=== PATIENT | female | born 1950 | race Asian ===

== ENCOUNTER → 2016-08-03 | Outpatient (CLI) | payer MEDICARE, OTHER | LOC: RAD 18:24 | PROVIDERS: ATTEND Internal Medicine | DX: C50.211 Malignant neoplasm of upper-inner quadrant of right female breast (principal) | CPT/HCPCS: 78815; A9552 ==

== ENCOUNTER → 2016-11-09 | Outpatient (CLI) | payer MEDICARE, OTHER | LOC: RAD 16:17 | PROVIDERS: ATTEND Internal Medicine | DX: C50.211 Malignant neoplasm of upper-inner quadrant of right female breast (principal) | CPT/HCPCS: 78815; A9552 ==

== ENCOUNTER 2017-01-29 07:19 | Inpatient (IN) | payer MEDICARE, OTHER ==
[2017-01-29] MEDS ORDERED: IPRATROPIUM/ALBUTEROL 0.5-2.5 MG/3 ML AMPUL NEB ONE ×2 (07:52→16:23)
--- NOTE | 2017-01-29 08:47 | RADIOLOGY REPORT (SQ) ---
EXAM DESCRIPTION: CHEST SINGLE VIEW COMPLETED DATE/TIME: 01/29/2017 8:16 am REASON FOR STUDY: sob COMPARISON: 03/23/2015. Correlation chest CT 11/26/2015. EXAM PARAMETERS: NUMBER OF VIEWS: One view. TECHNIQUE: Single frontal radiographic view of the chest acquired. RADIATION DOSE: NA LIMITATIONS: None. FINDINGS: LUNGS AND PLEURA: Increasing airspace disease in the lingula, left lower lobe and right maritza ng adjacent to the major fissure. MEDIASTINUM AND HILAR STRUCTURES: Stable. HEART AND VASCULAR STRUCTURES: Heart normal in size. Normal vasculature. BONES: No acute findings. HARDWARE: Left-sided port with tip overlying SVC. OTHER: No other significant finding. IMPRESSION: Bilateral pneumonia. There is a background of chronic changes. TECHNICAL DOCUMENTATION: JOB ID: [id number]
[2017-01-29] MEDS ORDERED: AZITHROMYCIN INJ 500 MG VIAL IV ONE (08:53)
--- NOTE | 2017-01-29 08:53 | ER Document Report ---
ED Respiratory Problem - General Chief Complaint: Breathing Difficulty Stated Complaint: DIFFICULTY BREATHING Time Seen by Provider: 01/29/17 07:39 Mode of Arrival: Ambulatory Information source: Patient Notes: Patient is a 66-year-old female with a history of breast cancer and lung cancer currently on chemotherapy who presents to the ER today for shortness of breath 3 days. Patient states that worsened today. She is usually on 2 L of oxygen at home and is on that now doing quite well. She denies any fevers or chills that she knows of but does admit to a slightly productive cough. She denies other symptoms. TRAVEL OUTSIDE OF THE [place] IN LAST 30 DAYS: No - Related Data Allergies/Adverse Reactions: aspirin [Aspirin] Allergy (Mild, Verified 01/29/17 07:21) diazepam [From Valium] Allergy (Verified 01/29/17 08:12) levofloxacin [From Levaquin] Allergy (Verified 01/29/17 08:12) morphine [Morphine] Allergy (Verified 01/29/17 07:21) Home Medications: Current Home Medications Albuterol Sulfate [Proair HFA] 2 puff IH Q4HP PRN 01/29/17 [History] Aspirin [Ecotrin 81 mg EC Tablet] 81 mg PO DAILY 01/29/17 [History] Atorvastatin Calcium [Lipitor 40 mg Tablet] 40 mg PO QHS 01/29/17 [History] Capecitabine 150 mg PO Q12 01/29/17 [History] Capecitabine [Xeloda] 1,500 mg PO Q12 01/29/17 [History] Duloxetine HCl [Cymbalta] 60 mg PO DAILY 01/29/17 [History] Fluticasone Propionate [Flonase Nasal [place] 50 Mcg/[place] 16 gm] 1 spray NASL Q12 01/29/17 [History] Gabapentin [Neurontin 300 mg Capsule] 300 mg PO Q8 01/29/17 [History] Guaifenesin/Codeine Phosphate [Guaifenesin-Codeine Liquid] 10 ml PO Q8HP PRN [History] Multivits-Min/Iron/FA/Lutein [Centrum Silver Women Tablet] 1 each PO DAILY 01/29 [History] Ondansetron [Zofran Odt 4 mg Tablet] 8 mg PO Q6HP PRN 01/29/17 [History] Pregabalin [Lyrica 50 Mg Capsule] 50 mg PO Q8 01/29/17 [History] Tiotropium Lulu [Spiriva Handihaler 5 Cap/Kit (18 Mcg/Cap)] 1 cap IH DAILY [History] Past Medical History - General Information source: Patient - Social History Smoking Status: Never Smoker Family History: Reviewed & Not Pertinent Patient has suicidal ideation: No Patient has homicidal ideation: No - Past Medical History Cardiac Medical History: Reports: Hx Hypercholesterolemia Denies: Hx Coronary Artery Disease, Hx Heart Attack, Hx Hypertension Pulmonary Medical History: Denies: Hx Asthma, Hx Bronchitis, Hx COPD, Hx Pneumonia Neurological Medical History: Denies: Hx Cerebrovascular Accident, Hx Seizures Renal/ Medical History: Denies: Hx Peritoneal Dialysis Musculoskeltal Medical History: Reports Hx Arthritis Past Surgical History: Reports: Hx Appendectomy, Hx Breast Surgery - R lumpectomy, Hx Hysterectomy, Hx Nose Surgery - Immunizations Hx Diphtheria, Pertussis, Tetanus Vaccination: Yes Hx Pneumococcal Vaccination: 09/03/13 Review of Systems - Review of Systems Constitutional: No symptoms reported EENT: No symptoms reported Cardiovascular: No symptoms reported Respiratory: See HPI Gastrointestinal: No symptoms reported Genitourinary: No symptoms reported Female Genitourinary: No symptoms reported Musculoskeletal: No symptoms reported Skin: No symptoms reported Hematologic/Lymphatic: No symptoms reported Neurological/Psychological: No symptoms reported Physical Exam - Vital signs Vitals: Temp Pulse Resp BP Pulse Ox 97.5 F 76 22 H 117/80 98 01/29/17 07:27 01/29/17 07:27 01/29/17 07:27 01/29/17 07:27 01/29/17 07:27 - Notes Notes: PHYSICAL EXAMINATION: GENERAL: Chronically ill-appearing, but in no acute distress. HEAD: Atraumatic, normocephalic. EYES: Pupils equal round and reactive to light, extraocular movements intact, sclera anicteric, conjunctiva are normal. ENT: ear canals without erythema or foreign body, TMs pearly o[place] with good bony landmarks, nares patent, oropharynx clear without exudates. Moist mucous membranes. Airway patent NECK: Normal range of motion, supple without lymphadenopathy LUNGS: rhonchi heard in right lower lung field, No wheezes, rales HEART: Regular rate and rhythm without murmurs ABDOMEN: Soft, no tenderness. No guarding, no rebound BACK: no vertebral tenderness, normal ROM GI/: no CVA tenderness EXTREMITIES: Normal range of motion, no pitting edema. No cyanosis. NEUROLOGICAL: Cranial nerves grossly intact. Normal sensory/motor exams. PSYCH: Normal mood, normal affect. SKIN: Warm, Dry, normal turgor, no rashes or lesions noted Course - Re-evaluation Re-evalutation: 01/29/17 11:36 , Chest x-ray revealed bilateral pneumonia. Patient's vital signs are also unremarkable as she is not tachypneic and 98% on her regular 2 L that she wears at home. Acutely she actually looks well, however with her clinical history of current lung cancer on chemotherapy with now a bilateral pneumonia on chest x- ray, I did discuss with her oncologist as well as her primary care provider, Dr. Fermin and Dr. Pittman, who agree that she needs admission for IV antibiotics 01/29/17 11:37 - Vital Signs Vital signs: Temp Pulse Resp BP Pulse Ox 98.1 F 82 24 H 119/61 97 01/29/17 15:29 01/29/17 16:20 01/29/17 16:20 01/29/17 15:29 01/29/17 16:20 - Laboratory Result Diagrams: 01/29/17 08:47 01/29/17 08:47 Laboratory results interpreted by me: 01/29/17 01/29/17 08:47 08:47 MCV 104 H MCH 34.9 H RDW 17.7 H Chloride 112 H Carbon Dioxide 21 L Glucose 112 H Discharge - Discharge Clinical Impression: Lung cancer Qualifiers: Laterality: unspecified laterality Lung location: unspecified part of lung Qualified Code(s): C34.90 - Malignant neoplasm of unspecified part of unspecified bronchus or lung Bilateral pneumonia Qualifiers: Pneumonia type: due to unspecified organism Lung location: unspecified part of lung Qualified Code(s): J18.9 - Pneumonia, unspecified organism Condition: Stable Disposition: ADMITTED INPATIENT Admitting Provider: Toya Unit Admitted: [facility]
[2017-01-29 08:59] LABS: ABSOLUTE EOSINOPHILS # (AUTO) 0.3 10^3/uL (0.0-0.6); ABSOLUTE LYMPHOCYTES (AUTO) 1.3 10^3/uL (0.5-4.7); ABSOLUTE MONOCYTES (AUTO) 0.4 10^3/uL (0.1-1.4); ABSOLUTE NEUT (AUTO) 7.1 10^3/uL (1.7-8.2); BASOPHILS % (AUTO) 0.4 % (0-2); EOSINOPHILS % (AUTO) 2.8 % (0-6); HEMATOCRIT 40.9 % (36.0-47.0); HEMOGLOBIN 13.7 g/dL (12.0-15.5); HGB HCT DIFFERENCE 0.2; LYMPHOCYTES % (AUTO) 14.8 % (13-45); MEAN CORPUSCULAR HEMOGLOBIN 34.9 pg (27.0-33.4); MEAN CORPUSCULAR HGB CONC 33.5 g/dL (32.0-36.0); MEAN CORPUSCULAR VOLUME 104 fl (80-97); MONOCYTES % (AUTO) 4.6 % (3-13); RED BLOOD COUNT 3.92 10^6/uL (3.72-5.28); RED CELL DISTRIBUTION WIDTH 17.7 % (11.5-14.0); SEGMENTED NEUTROPHILS % (AUTO) 77.4 % (42-78); WHITE BLOOD COUNT 9.1 10^3/uL (4.0-10.5)
[2017-01-29 09:14] LABS: ALANINE AMINOTRANSFERASE 27 U/L (9-52); ALBUMIN 4.1 g/dL (3.5-5.0); ALKALINE PHOSPHATASE 84 U/L (38-126); ANION GAP 11 (5-19); ASPARTATE AMINO TRANSFERASE 19 U/L (14-36); BILIRUBIN,DIRECT 0.3 mg/dL (0.0-0.4); BILIRUBIN,TOTAL 0.9 mg/dL (0.2-1.3); BLOOD UREA NITROGEN 11 mg/dL (7-20); CALCIUM 9.2 mg/dL (8.4-10.2); CARBON DIOXIDE 21 mmol/L (22-30); CHLORIDE 112 mmol/L (98-107); CREATINE KINASE 35 U/L (30-135); CREATININE RESULT 0.52 mg/dL (0.52-1.25); GLUCOSE 112 mg/dL (75-110); POTASSIUM 4.5 mmol/L (3.6-5.0); SODIUM 143.7 mmol/L (137-145); TOTAL PROTEIN 7.2 g/dL (6.3-8.2)
[2017-01-29 09:23] LABS: CREATINE KINASE MB 0.27 ng/mL (<4.55)
[2017-01-29 09:27] LABS: TROPONIN I < 0.012 ng/mL
[2017-01-29 09:30] LABS: APPEARANCE,URINE CLEAR; BILIRUBIN,URINE NEGATIVE (NEGATIVE); GLUCOSE, URINE NEGATIVE (NEGATIVE); KETONES,URINE NEGATIVE (NEGATIVE); LEUKOCYTE ESTERASE,URINE NEGATIVE (NEGATIVE); NITRITE,URINE NEGATIVE (NEGATIVE); PROTEIN,URINE NEGATIVE (NEGATIVE); URINE SPECIFIC GRAVITY 1.009; UROBILINOGEN,URINE NEGATIVE mg/dL (<2.0)
[2017-01-29] MEDS ORDERED: [UNRECOGNIZED DRUG - OTHER] PO PRN (15:51)
[2017-01-29] MEDS ORDERED: CODEINE PHOSPHATE PO PRN (15:51)
[2017-01-29] MEDS ORDERED: ALBUTEROL SULFATE HFA (90 MCG/PUFF) 8 GM MDI (1 MDI/ER DISP) IH PRN (15:51)
[2017-01-29] MEDS ORDERED: GUAIFENESIN PO PRN (15:51)
[2017-01-29] MEDS ORDERED: IPRATROPIUM/ALBUTEROL 0.5-2.5 MG/3 ML AMPUL NEB PRN (16:37)
[2017-01-29] MEDS ORDERED: GUAIFENESIN/CODEINE PHOS 100-10 MG/ 5 ML UDC PO PRN (17:08)
[2017-01-29 17:14] LABS: PARTIAL THROMBOPLASTIN TIME 36.6 SEC (23.5-35.8)
[2017-01-29 17:16] LABS: D-DIMER 0.67 ug/mL (0.00-0.50)
--- NOTE | 2017-01-29 17:19 | EKG REPORT ---
SEVERITY:- NORMAL ECG - SINUS RHYTHM : Confirmed by: Angela Sinclair MD 29-Jan-2017 17:17:47
--- NOTE | 2017-01-29 17:33 | RADIOLOGY REPORT (SQ) ---
EXAM DESCRIPTION: CT CHEST WITH COMPLETED DATE/TIME: 01/29/2017 5:09 pm REASON FOR STUDY: SOB PNA COMPARISON: Chest x-ray dated 01/29/2017 and PET scan dated November [address] scan dated November 2015 TECHNIQUE: CT scan of the chest performed using helical scanning technique with dynamic intravenous contrast injection. Images reviewed with lung, soft tissue and bone windows. Reconstructed coronal and sagittal MPR images reviewed. All images stored on PACS. All CT scanners at this facility use dose modulation, iterative reconstruction, and/or weight based d osing when appropriate to reduce radiation dose to as low as reasonably achievable (ALARA). [facility]: Dose Right [facility]: CareDose [facility]: Dose Right [facility]: Teradose 4D [facility]: [place] CONTRAST TYPE AND DOSE: contrast/concentration: Isovue 370.00 mg/ml; Total Contrast Delivered: 100.0 ml; Total Saline Delivered: 110.0 ml RENAL FUNCTION: GFR > 60. RADIATION DOSE: Up-to-date CT equipment and radiation dose reduction techniques were employed. CTDIv ol: 5.2 mGy. DLP: 194 mGy-cm. . LIMITATIONS: None. FINDINGS: LUNGS AND PLEURA: Extensive chronic appearing changes are again identified. A moderate si ze left pleural effusion is identified which was not present on the previous study. The previously d escribed multiple areas of dense lung parenchymal consolidation bilaterally are again identified and are similar in appearance to the previous PET-CT scan. These changes are superimposed on the extensi ve underlying chronic changes. HILAR AND MEDIASTINAL STRUCTURES: Prominent mediastinal lymph nodes are stable. HEART AND VASCULAR STRUCTURES: The previously described 4.2 cm in diameter aneurysm of the ascending aorta appears stabl. No central pulmonary emboli. No pericardial effusion. HARDWARE: Port-A-Cath is unchanged in position. UPPER ABDOMEN: No significant findings. Limited exam. THYROID AND OTHER SOFT TISSUES: No masses. No adenopathy. BONES: No significant finding. OTHER: No other significant finding. IMPRESSION: Extensive chronic appearing changes are again identified. The previously described mult iple areas of dense lung parenchymal consolidation bilaterally are again identified and are similar i n appearance to the previous PET-CT scan. These changes are superimposed on extensive underlying chr onic changes. Interval development of a moderate size left pleural effusion. Other findings as note d above TECHNICAL DOCUMENTATION: JOB ID: [id number] Quality ID # [id number]: Final reports with documentation of one or more dose reduction techniques (e.g., Au tomated exposure control, adjustment of the mA and/or kV according to patient size, use of iterative reconstruction technique) 2010 [employer]- All Rights Reserved
[2017-01-29] MEDS ORDERED: DULOXETINE HCL 30 MG CAPSULE.DR PO ONE (18:00)
[2017-01-29] MEDS ORDERED: CEFTRIAXONE SODIUM 1,000 MG in DEXTROSE 5%-WATER 50 ML IV SCH (18:00)
[2017-01-29] MEDS: CEFTRIAXONE 1 GM/D5W RTU 1 GM/50 ML RTUPB IV SCH (18:37)
[2017-01-29 18:50] LABS: PROTHROMBIN TIME 12.7 SEC (11.4-15.4)
[2017-01-29 18:51] LABS: PARTIAL THROMBOPLASTIN TIME 27.3 SEC (23.5-35.8)
--- NOTE | 2017-01-29 19:59 | PDOC H&P ---
History of Present Illness Admission Date/PCP: 01/29/17 10:51 FARIDEH SCOTT MD History of Present Illness: GIANFRANCO LAWRENCE is a 66 year old female, She has a history of malignant neoplasm of the lung, on chemotherapy, she came to the emergency room for the evaluation of progressive shortness of breath for the last seven days, she said the symptoms increased last night and she was unable to sleep.She was evaluated in the emergency room, and hospital admission was advised. I saw patient on the floor, she is well known to me, she continues to smoke cigarettes despite very severe COPD, malignant neoplasm of the lung on active chemotherapy I requested for CT chest with contrast, it showed extensive chronic appearing changes there was a moderate sized left pleural effusion which was not present on the previous study. The previously described multiple areas of dense lung parenchyma consolidation bilaterally are again identified and similar in appearance to the previous PET CT scan the changes are superimposed on the extensive underlining chronic changes. Also found was a 4.2 cm aneurysm of the ascending aorta stable Past Medical History Cardiac Medical History: Reports: Hyperlipidema Pulmonary Medical History: Reports: Chronic Obstructive Pulmonary Disease (COPD) Malignancy Medical History: Reports: Breast Cancer, Lung Cancer Musculoskeltal Medical History: Reports: Arthritis Psychiatric Medical History: Reports: Depression Past Surgical History Past Surgical History: Reports: Appendectomy, Hysterectomy Social History Smoking Status: Current Every Day Smoker Number of Years Smokin Last Time Smoked: last week Frequency of Alcohol Use: None Hx Recreational Drug Use: No Drugs: None Hx Prescription Drug Abuse: No Family History Family History: Reviewed & Not Pertinent Parental Family History Reviewed: Yes Children Family History Reviewed: Yes Sibling(s) Family History Reviewed.: Yes Medication/Allergy Home Medications: Albuterol Sulfate [Proair HFA] 2 puff IH Q4HP PRN 01/29/17 Aspirin [Ecotrin 81 mg EC Tablet] 81 mg PO DAILY 01/29/17 Atorvastatin Calcium [Lipitor 40 mg Tablet] 40 mg PO QHS 01/29/17 Capecitabine 150 mg PO Q12 01/29/17 Capecitabine [Xeloda] 1,500 mg PO Q12 01/29/17 Duloxetine HCl [Cymbalta] 60 mg PO DAILY 01/29/17 Fluticasone Propionate [Flonase Nasal [place] 50 Mcg/[place] 16 gm] 1 spray NASL Q12 01/29/17 Gabapentin [Neurontin 300 mg Capsule] 300 mg PO Q8 01/29/17 Guaifenesin/Codeine Phosphate [Guaifenesin-Codeine Liquid] 10 ml PO Q8HP PRN Multivits-Min/Iron/FA/Lutein [Centrum Silver Women Tablet] 1 each PO DAILY 01/29 Ondansetron [Zofran Odt 4 mg Tablet] 8 mg PO Q6HP PRN 01/29/17 Pregabalin [Lyrica 50 Mg Capsule] 50 mg PO Q8 01/29/17 Tiotropium [place] [Spiriva [place] 5 Cap/Kit (18 Mcg/Cap)] 1 cap IH DAILY Allergies/Adverse Reactions: aspirin [Aspirin] Allergy (Mild, Verified 01/29/17 07:21) diazepam [From Valium] Allergy (Verified 01/29/17 08:12) levofloxacin [From Levaquin] Allergy (Verified 01/29/17 08:12) morphine [Morphine] Allergy (Verified 01/29/17 07:21) Review of Systems Constitutional: PRESENT: fever(s), weight loss Eyes: ABSENT: visual disturbances Ears: ABSENT: hearing changes Cardiovascular: PRESENT: dyspnea on exertion Respiratory: PRESENT: cough, dyspnea Gastrointestinal: ABSENT: abdominal pain, constipation, diarrhea, hematemesis, hematochezia, nausea, vomiting Genitourinary: ABSENT: dysuria, hematuria Musculoskeletal: ABSENT: joint swelling Integumentary: ABSENT: rash, wounds Neurological: ABSENT: abnormal gait, abnormal speech, confusion, dizziness, focal weakness, syncope Psychiatric: ABSENT: anxiety, depression, homidical ideation, suicidal ideation Endocrine: ABSENT: cold intolerance, heat intolerance, menstrual abnormalities, polydipsia, polyuria Hematologic/Lymphatic: ABSENT: easy bleeding, easy bruising, lymphadenopathy Physical Exam Vital Signs: Temp Pulse Resp BP Pulse Ox 98.1 F 87 24 H 119/61 100 01/29/17 15:29 01/29/17 18:49 01/29/17 16:20 01/29/17 15:29 01/29/17 18:49 Intake & Output 01/28/17 01/29/17 01/30/17 06:59 06:59 06:59 Intake Total 590 Balance 590 Weight 61 kg General appearance: PRESENT: mild distress Head exam: PRESENT: atraumatic, normocephalic Eye exam: PRESENT: conjunctiva pink, EOMI, PERRLA Mouth exam: PRESENT: moist, tongue midline Neck exam: PRESENT: full ROM Respiratory exam: PRESENT: rales Cardiovascular exam: PRESENT: RRR, +S1, +S2 Vascular exam: PRESENT: normal capillary refill GI/Abdominal exam: PRESENT: normal bowel sounds, soft Rectal exam: PRESENT: deferred Neurological exam: PRESENT: alert, awake, oriented to person, oriented to place , oriented to time, oriented to situation, CN II-XII grossly intact Psychiatric exam: PRESENT: appropriate affect, normal mood Skin exam: PRESENT: dry, intact, warm Results Impressions: Chest CT 01/29/17 00:00 IMPRESSION: Extensive chronic appearing changes are again identified. The previously described multiple areas of dense lung parenchymal consolidation bilaterally are again identified and are similar in appearance to the previous PET-CT scan. These changes are superimposed on extensive underlying chronic changes. Interval development of a moderate size left pleural effusion. Other findings as noted above Chest X-Ray 01/29/17 07:40 IMPRESSION: Bilateral pneumonia. There is a background of chronic changes. Assessment & Plan - Diagnosis (1) Pleural effusion on left Is this a current diagnosis for this admission?: YesPlan: The differential diagnoses include malignant pleural effusion, parapneumonic effusion, she will empirically be treated with IV antibiotic, ceftriaxone and Zithromax. Thoracentesis will be obtained for diagnostic and therapeutic purposes. Overall prognosis is poor. Patient is a DNR status this will be stated and continue on record (2) Malignant neoplasm of lung Qualifiers: Laterality: unspecified laterality Lung location: unspecified part of lung Qualified Code(s): C34.90 - Malignant neoplasm of unspecified part of unspecified bronchus or lung Is this a current diagnosis for this admission?: Yes
[2017-01-29] MEDS: IPRATROPIUM/ALBUTEROL 0.5-2.5 MG/3 ML AMPUL NEB PRN (20:11)
[2017-01-29] MEDS: ATORVASTATIN CALCIUM 40 MG TABLET PO SCH (21:49)
[2017-01-29] MEDS: GABAPENTIN 300 MG CAPSULE PO SCH (21:50)
[2017-01-29] MEDS: PREGABALIN 50 MG CAPSULE PO SCH (21:50)
[2017-01-29] MEDS ORDERED: CAPECITABINE 1500 MG PO SCH (22:00)
[2017-01-29] MEDS: FLUTICASONE NASAL SPRAY 50 MCG/SPRY 120 SPRAY/16 GM NASL SCH (22:00)
[2017-01-29] MEDS ORDERED: CAPECITABINE 150 MG PO SCH (22:00)
[2017-01-30 00:12] LABS: ARTERIAL BLOOD BASE EXCESS -0.2 mmol/L; ARTERIAL BLOOD O2 SATURATION 97.2 % (94-98)
[2017-01-30] MEDS: PREGABALIN 50 MG CAPSULE PO SCH ×3 (06:41→22:05)
[2017-01-30] MEDS: GABAPENTIN 300 MG CAPSULE PO SCH ×3 (06:42→22:04)
[2017-01-30] MEDS ORDERED: (PENDING PHARMACY ID) (Multivits-Min/Iron/Fa/Lutein [Centrum Silver Women Tablet] 1 EACH) PO SCH (10:00)
[2017-01-30] MEDS: IPRATROPIUM/ALBUTEROL 0.5-2.5 MG/3 ML AMPUL NEB PRN (10:13)
[2017-01-30] MEDS: AZITHROMYCIN 500 MG in DEXTROSE 5%-WATER 250 ML IV SCH (10:20)
[2017-01-30] MEDS: DULOXETINE HCL 30 MG CAPSULE.DR PO SCH (10:21)
[2017-01-30] MEDS: MULTIVITAMIN TABLET PO SCH (10:21)
[2017-01-30] MEDS: XELODA 500 MG PO SCH ×2 (10:22→22:05)
[2017-01-30] MEDS: TIOTROPIUM BROMIDE DPI 5 CAP/KIT (18 MCG/CAP) IH SCH (10:23)
[2017-01-30] MEDS: CAPECITABINE PO SCH ×2 (10:23→22:04)
[2017-01-30] MEDS: FLUTICASONE NASAL SPRAY 50 MCG/SPRY 120 SPRAY/16 GM NASL SCH ×2 (10:24→22:04)
[2017-01-30] MEDS: ASPIRIN 81 MG TABLET, ENT COATED PO SCH (10:25)
--- NOTE | 2017-01-30 12:12 | RADIOLOGY REPORT (SQ) ---
EXAM DESCRIPTION: CHEST SINGLE VIEW COMPLETED DATE/TIME: 01/30/2017 12:05 pm REASON FOR STUDY: S/P LEFT THORACENTESIS COMPARISON: 01/29/2017. EXAM PARAMETERS: NUMBER OF VIEWS: One view. TECHNIQUE: Single frontal radiographic view of the chest acquired. RADIATION DOSE: NA LIMITATIONS: None. FINDINGS: LUNGS AND PLEURA: Bilateral parenchymal infiltrates. Slight decrease in the left pleural effusion. No pneumothorax. MEDIASTINUM AND HILAR STRUCTURES: No masses. Contour normal. HEART AND VASCULAR STRUCTURES: Heart normal in size. Normal vasculature. BONES: No acute findings. HARDWARE: Vascular access port. Surgical clips. OTHER: No other significant finding. IMPRESSION: NO PNEUMOTHORAX FOLLOWING LEFT THORACENTESIS. BILATERAL INFILTRATES UNCHANGED. TECHNICAL DOCUMENTATION: JOB ID: [id number]
--- NOTE | 2017-01-30 12:13 | RADIOLOGY REPORT (SQ) ---
EXAM DESCRIPTION: U/S THORACENTESIS WITH IMAGING COMPLETED DATE/TIME: 01/30/2017 11:41 am REASON FOR STUDY: moderate pleural effusion COMPARISON: None. LIMITATIONS: None. PROCEDURE: Procedure, risks, benefit, and alternative explained to patient who then gave written con sent. The posterior left chest wall was marked using ultrasound guidance. A time-out was called for correct marking verification. Chest prepped and draped using sterile technique. Local anesthesia ac hieved using 5 ml of 1% lidocaine injection. A 6fr Safe-T- Centesis set was introduced into the left pleural space. Fluid was aspirated. The catheter was removed and the entry site was covered with s terile bandage. No immediate complications noted. Images acquired during the procedure were stored on PACS. FINDINGS: ENTRY SITE: Posterior left chest. FLUID VOLUME: 400 mL FLUID ANALYSIS: Serosanguineous fluid. OTHER: Fluid sent to the lab for testing. IMPRESSION: SUCCESSFUL THORACENTESIS USING ULTRASOUND GUIDANCE. COMMENT: Patient medication list reviewed: Yes- Quality ID# [id number]:Eligible professional attests to doc umenting in the medical record they obtained, updated, or reviewed the patient's current medications. Quality ID #[id number]: Final reports for procedures using fluoroscopy that document radiation exposure yasmeen jesenia, or exposure time and number of fluorographic images (if radiation exposure indices are not avail able) TECHNICAL DOCUMENTATION: JOB ID: [id number] [employer]- All Rights Reserved
--- NOTE | 2017-01-30 12:14 | EKG REPORT ---
SEVERITY:- NORMAL ECG - SINUS RHYTHM : Confirmed by: Angela Sinclair MD 30-Jan-2017 12:13:52
[2017-01-30 14:03] LABS: FLUID TYPE PLEURAL
[2017-01-30 14:04] LABS: FLUID APPEARANCE CLOUDY; FLUID RBC AVERAGE 249.5; FLUID RBC DILUENT USED SALINE; FLUID RBC DILUTION FACTOR 11; FLUID RBC SIDE 1 259; FLUID RBC SIDE 2 240; TOTAL RBC SQUARES COUNTED FLD 25
--- NOTE | 2017-01-30 14:53 | RADIOLOGY REPORT (SQ) ---
EXAM DESCRIPTION: CHEST SINGLE VIEW COMPLETED DATE/TIME: 01/30/2017 2:41 pm REASON FOR STUDY: 2 HOURS POST LEFT THORACENTESIS COMPARISON: 01/30/2017 at 1156 hours. EXAM PARAMETERS: NUMBER OF VIEWS: One view. TECHNIQUE: Single frontal radiographic view of the chest acquired. RADIATION DOSE: NA LIMITATIONS: None. FINDINGS: LUNGS AND PLEURA: Bilateral infiltrates, left greater than right, unchanged. No pneumotho rax 2 hours after thoracentesis. MEDIASTINUM AND HILAR STRUCTURES: No masses. Contour normal. HEART AND VASCULAR STRUCTURES: Heart normal in size. Normal vasculature. BONES: No acute findings. HARDWARE: Vascular access port. Surgical clips. OTHER: No other significant finding. IMPRESSION: NO PNEUMOTHORAX FOLLOWING THORACENTESIS. NO CHANGE IN APPEARANCE OF THE CHEST. TECHNICAL DOCUMENTATION: JOB ID: [id number]
[2017-01-30] MEDS: OXYCODONE-ACETAMINOPHEN 5-325 MG TABLET PO PRN (18:09)
[2017-01-30] MEDS: CEFTRIAXONE 1 GM/D5W RTU 1 GM/50 ML RTUPB IV SCH (18:10)
[2017-01-30] MEDS: ONDANSETRON 4 MG TAB.RAPDIS PO PRN (18:11)
--- NOTE | 2017-01-30 20:56 | PDOC PROGRESS REPORT ---
Subjective Progress Note for:: 01/30/17 Subjective:: She was admitted yesterday for the management of symptomatic left large pleural effusion most likely malignant pleural effusion versus parapneumonic pleural effusion. She had thoracentesis done today about 400 cc of fluid was drained from the pleural space. She feels somewhat better today compared to yesterday Physical Exam Vital Signs: Temp Pulse Resp BP Pulse Ox 98.3 F 80 18 120/76 100 01/30/17 15:17 01/30/17 15:17 01/30/17 15:17 01/30/17 15:17 01/30/17 15:17 Intake & Output 01/29/17 01/30/17 01/31/17 06:59 06:59 06:59 Intake Total 1480 Balance 1480 General appearance: PRESENT: no acute distress Eye exam: PRESENT: PERRLA Respiratory exam: PRESENT: rhonchi Cardiovascular exam: PRESENT: +S1, +S2 GI/Abdominal exam: PRESENT: soft Neurological exam: PRESENT: alert, CN II-XII grossly intact Results Impressions: Chest CT 01/29/17 00:00 IMPRESSION: Extensive chronic appearing changes are again identified. The previously described multiple areas of dense lung parenchymal consolidation bilaterally are again identified and are similar in appearance to the previous PET-CT scan. These changes are superimposed on extensive underlying chronic changes. Interval development of a moderate size left pleural effusion. Other findings as noted above Thoracentesis Ultrasound 01/30/17 00:00 IMPRESSION: SUCCESSFUL THORACENTESIS USING ULTRASOUND GUIDANCE. Chest X-Ray 01/30/17 14:00 IMPRESSION: NO PNEUMOTHORAX FOLLOWING THORACENTESIS. NO CHANGE IN APPEARANCE OF THE CHEST. Assessment & Plan - Diagnosis (1) Pleural effusion on left Is this a current diagnosis for this admission?: Yes (2) Malignant neoplasm of lung Qualifiers: Laterality: unspecified laterality Lung location: unspecified part of lung Qualified Code(s): C34.90 - Malignant neoplasm of unspecified part of unspecified bronchus or lung Is this a current diagnosis for this admission?: Yes - Plan Summary Plan Summary: She will empirically continue IV antibiotic, she probably have malignant pleural effusion will wait for results of the thoracentesis
[2017-01-30] MEDS: ATORVASTATIN CALCIUM 40 MG TABLET PO SCH (22:03)
[2017-01-31] MEDS: PREGABALIN 50 MG CAPSULE PO SCH ×3 (06:40→21:39)
[2017-01-31] MEDS: GABAPENTIN 300 MG CAPSULE PO SCH ×3 (06:40→21:39)
[2017-01-31] MEDS: OXYCODONE-ACETAMINOPHEN 5-325 MG TABLET PO PRN ×4 (07:35→19:37)
[2017-01-31] MEDS: ONDANSETRON 4 MG TAB.RAPDIS PO PRN ×2 (07:36→15:31)
[2017-01-31] MEDS: CAPECITABINE PO SCH ×2 (10:21→21:40)
[2017-01-31] MEDS: AZITHROMYCIN 500 MG in DEXTROSE 5%-WATER 250 ML IV SCH (10:21)
[2017-01-31] MEDS: XELODA 500 MG PO SCH ×2 (10:22→21:40)
[2017-01-31] MEDS: TIOTROPIUM BROMIDE DPI 5 CAP/KIT (18 MCG/CAP) IH SCH (10:23)
[2017-01-31] MEDS: MULTIVITAMIN TABLET PO SCH (10:25)
[2017-01-31] MEDS: DULOXETINE HCL 30 MG CAPSULE.DR PO SCH (10:25)
[2017-01-31] MEDS: ASPIRIN 81 MG TABLET, ENT COATED PO SCH (10:26)
[2017-01-31] MEDS: FLUTICASONE NASAL SPRAY 50 MCG/SPRY 120 SPRAY/16 GM NASL SCH ×2 (10:28→21:40)
[2017-01-31] MEDS: IPRATROPIUM/ALBUTEROL 0.5-2.5 MG/3 ML AMPUL NEB PRN (12:54)
--- NOTE | 2017-01-31 15:51 | PDOC PROGRESS REPORT ---
Subjective Progress Note for:: 01/31/17 Subjective:: Patient denied any chest pain or difficulty with breathing. She reported episode of blood component in her sputum earlier this morning. No nausea, vomiting, or abdominal pain. Physical Exam Vital Signs: Temp Pulse Resp BP Pulse Ox 98.4 F 78 18 109/70 99 01/31/17 10:53 01/31/17 12:54 01/31/17 12:54 01/31/17 10:53 01/31/17 10:53 Intake & Output 01/30/17 01/31/17 02/01/17 06:59 06:59 06:59 Intake Total 1979 795 Balance 1979 795 Weight 63 kg General appearance: PRESENT: no acute distress Head exam: PRESENT: atraumatic, normocephalic Eye exam: PRESENT: EOMI, PERRLA Mouth exam: PRESENT: moist Respiratory exam: PRESENT: clear to auscultation cordell, decreased breath sounds - at lung bases Cardiovascular exam: PRESENT: RRR. ABSENT: diastolic murmur, rubs, systolic murmur GI/Abdominal exam: PRESENT: normal bowel sounds, soft. ABSENT: distended, guarding, mass, organolmegaly, rebound, tenderness Extremities exam: ABSENT: pedal edema Musculoskeletal exam: PRESENT: normal inspection Neurological exam: PRESENT: alert, awake, oriented to person, oriented to place , oriented to time, oriented to situation, CN II-XII grossly intact. ABSENT: motor sensory deficit Psychiatric exam: PRESENT: appropriate affect, normal mood. ABSENT: homicidal ideation, suicidal ideation Skin exam: PRESENT: dry, warm, other - left posterior chest wall site of paracentesis dressing okay. Results Impressions: Chest CT 01/29/17 00:00 IMPRESSION: Extensive chronic appearing changes are again identified. The previously described multiple areas of dense lung parenchymal consolidation bilaterally are again identified and are similar in appearance to the previous PET-CT scan. These changes are superimposed on extensive underlying chronic changes. Interval development of a moderate size left pleural effusion. Other findings as noted above Thoracentesis Ultrasound 01/30/17 00:00 IMPRESSION: SUCCESSFUL THORACENTESIS USING ULTRASOUND GUIDANCE. Chest X-Ray 01/30/17 14:00 IMPRESSION: NO PNEUMOTHORAX FOLLOWING THORACENTESIS. NO CHANGE IN APPEARANCE OF THE CHEST. Assessment & Plan - Diagnosis (1) Pleural effusion on left Is this a current diagnosis for this admission?: YesPlan: Continue current medication management. (2) Bilateral pneumonia Qualifiers: Pneumonia type: due to unspecified organism Lung location: unspecified part of lung Qualified Code(s): J18.9 - Pneumonia, unspecified organism Is this a current diagnosis for this admission?: YesPlan: Continue IV Rocephin and Azithromycin coverage. Follow up with CBC indices monitor. (3) Lung cancer Qualifiers: Laterality: unspecified laterality Lung location: unspecified part of lung Qualified Code(s): C34.90 - Malignant neoplasm of unspecified part of unspecified bronchus or lung Plan: Continue current support care and management. (4) Malignant neoplasm of lung Qualifiers: Laterality: unspecified laterality Lung location: unspecified part of lung Qualified Code(s): C34.90 - Malignant neoplasm of unspecified part of unspecified bronchus or lung Is this a current diagnosis for this admission?: YesPlan: Continue current management and supportive care. - Time Time Spent with patient: 25-34 minutes Medications reviewed and adjusted accordingly: Yes Anticipated discharge: Home Within: Other - Inpatient Certification Medical Necessity: Need Close Monitoring Due to Risk of Patient Decompensation, Need For IV Fluids, Need For Continuous Telemetry Monitoring, Need for IV Antibiotics, Risk of Complication if Not Cared For in Hospital Post Hospital Care: D/C [employer] Documentation - Plan Summary Plan Summary: See covering attending physician orders.
[2017-01-31] MEDS: CEFTRIAXONE 1 GM/D5W RTU 1 GM/50 ML RTUPB IV SCH (17:58)
[2017-01-31] MEDS: ATORVASTATIN CALCIUM 40 MG TABLET PO SCH (21:39)
[2017-02-01] MEDS: PREGABALIN 50 MG CAPSULE PO SCH ×3 (06:49→21:54)
[2017-02-01] MEDS: GABAPENTIN 300 MG CAPSULE PO SCH ×3 (06:50→21:53)
[2017-02-01 07:31] LABS: ABSOLUTE EOSINOPHILS # (AUTO) 0.4 10^3/uL (0.0-0.6); ABSOLUTE LYMPHOCYTES (AUTO) 1.3 10^3/uL (0.5-4.7); ABSOLUTE MONOCYTES (AUTO) 0.5 10^3/uL (0.1-1.4); ABSOLUTE NEUT (AUTO) 4.9 10^3/uL (1.7-8.2); BASOPHILS % (AUTO) 0.6 % (0-2); HEMATOCRIT 39.7 % (36.0-47.0); HEMOGLOBIN 13.2 g/dL (12.0-15.5); HGB HCT DIFFERENCE -0.1; LYMPHOCYTES % (AUTO) 18.8 % (13-45); MEAN CORPUSCULAR HEMOGLOBIN 34.8 pg (27.0-33.4); MEAN CORPUSCULAR HGB CONC 33.4 g/dL (32.0-36.0); MEAN CORPUSCULAR VOLUME 104 fl (80-97); MONOCYTES % (AUTO) 6.8 % (3-13); RED CELL DISTRIBUTION WIDTH 17.4 % (11.5-14.0); SEGMENTED NEUTROPHILS % (AUTO) 68.8 % (42-78); WHITE BLOOD COUNT 7.1 10^3/uL (4.0-10.5)
[2017-02-01 07:52] LABS: ALANINE AMINOTRANSFERASE 32 U/L (9-52); ALBUMIN 4.1 g/dL (3.5-5.0); ALKALINE PHOSPHATASE 83 U/L (38-126); ANION GAP 11 (5-19); ASPARTATE AMINO TRANSFERASE 19 U/L (14-36); BILIRUBIN,DIRECT 0.4 mg/dL (0.0-0.4); BILIRUBIN,TOTAL 0.8 mg/dL (0.2-1.3); BLOOD UREA NITROGEN 12 mg/dL (7-20); CALCIUM 9.3 mg/dL (8.4-10.2); CARBON DIOXIDE 28 mmol/L (22-30); CHLORIDE 104 mmol/L (98-107); CREATININE RESULT 0.63 mg/dL (0.52-1.25); GLUCOSE 117 mg/dL (75-110); POTASSIUM 4.4 mmol/L (3.6-5.0); SODIUM 143.3 mmol/L (137-145); TOTAL PROTEIN 7.2 g/dL (6.3-8.2)
[2017-02-01] MEDS: ASPIRIN 81 MG TABLET, ENT COATED PO SCH (09:42)
[2017-02-01] MEDS: DULOXETINE HCL 30 MG CAPSULE.DR PO SCH (09:43)
[2017-02-01] MEDS: OXYCODONE-ACETAMINOPHEN 5-325 MG TABLET PO PRN ×4 (09:43→22:24)
[2017-02-01] MEDS: MULTIVITAMIN TABLET PO SCH (09:43)
[2017-02-01] MEDS: FLUTICASONE NASAL SPRAY 50 MCG/SPRY 120 SPRAY/16 GM NASL SCH ×2 (09:44→21:53)
[2017-02-01] MEDS: CAPECITABINE PO SCH ×2 (09:45→21:56)
[2017-02-01] MEDS: XELODA 500 MG PO SCH ×2 (09:46→21:56)
[2017-02-01] MEDS: AZITHROMYCIN 500 MG in DEXTROSE 5%-WATER 250 ML IV SCH (09:48)
[2017-02-01] MEDS: TIOTROPIUM BROMIDE DPI 5 CAP/KIT (18 MCG/CAP) IH SCH (09:54)
--- NOTE | 2017-02-01 13:57 | PDOC PROGRESS REPORT ---
Subjective Progress Note for:: 02/01/17 Subjective:: No chest pain or difficulty with breathing. She reported episode of blood component in her sputum earlier this morning. No nausea, vomiting, or abdominal pain. Physical Exam Vital Signs: Temp Pulse Resp BP Pulse Ox 97.9 F 78 18 109/67 100 02/01/17 11:03 02/01/17 11:03 02/01/17 11:03 02/01/17 11:03 02/01/17 11:03 Intake & Output 01/31/17 02/01/17 02/02/17 06:59 06:59 06:59 Intake Total 1979 3349 959 Balance 1979 3349 959 Weight 63 kg 62.7 kg Physical Exam: General appearance: PRESENT: no acute distress Head exam: PRESENT: atraumatic, normocephalic Eye exam: PRESENT: EOMI, PERRLA Mouth exam: PRESENT: moist Respiratory exam: PRESENT: clear to auscultation cordell, decreased breath sounds - at lung bases Cardiovascular exam: PRESENT: RRR. ABSENT: diastolic murmur, rubs, systolic murmur GI/Abdominal exam: PRESENT: normal bowel sounds, soft. ABSENT: distended, guarding, mass, organomegaly, rebound, tenderness Extremities exam: ABSENT: pedal edema Musculoskeletal exam: PRESENT: normal inspection Neurological exam: PRESENT: alert, awake, oriented to person, oriented to place , oriented to time, oriented to situation, CN II-XII grossly intact. ABSENT: motor sensory deficit Psychiatric exam: PRESENT: appropriate affect, normal mood. ABSENT: homicidal ideation, suicidal ideation Skin exam: PRESENT: dry, warm, other - left posterior chest wall site of paracentesis dressing okay. Results Laboratory Results: 02/01/17 06:50 02/01/17 06:50 02/01/17 02/01/17 06:50 06:50 WBC 7.1 RBC 3.80 Hgb 13.2 Hct 39.7 MCV 104 H MCH 34.8 H MCHC 33.4 RDW 17.4 H Plt Count 248 Seg Neutrophils % 68.8 Lymphocytes % 18.8 Monocytes % 6.8 Eosinophils % 5.0 Basophils % 0.6 Absolute Neutrophils 4.9 Absolute Lymphocytes 1.3 Absolute Monocytes 0.5 Absolute Eosinophils 0.4 Absolute Basophils 0.0 Sodium 143.3 Potassium 4.4 Chloride 104 Carbon Dioxide 28 Anion Gap 11 BUN 12 Creatinine 0.63 Est GFR ( Amer) > 60 Est GFR (Non-Af Amer) > 60 Glucose 117 H Calcium 9.3 Total Bilirubin 0.8 AST 19 ALT 32 Alkaline Phosphatase 83 Total Protein 7.2 Albumin 4.1 Impressions: Chest CT 01/29/17 00:00 IMPRESSION: Extensive chronic appearing changes are again identified. The previously described multiple areas of dense lung parenchymal consolidation bilaterally are again identified and are similar in appearance to the previous PET-CT scan. These changes are superimposed on extensive underlying chronic changes. Interval development of a moderate size left pleural effusion. Other findings as noted above Thoracentesis Ultrasound 01/30/17 00:00 IMPRESSION: SUCCESSFUL THORACENTESIS USING ULTRASOUND GUIDANCE. Chest X-Ray 01/30/17 14:00 IMPRESSION: NO PNEUMOTHORAX FOLLOWING THORACENTESIS. NO CHANGE IN APPEARANCE OF THE CHEST. Assessment & Plan - Diagnosis (1) Pleural effusion on left Is this a current diagnosis for this admission?: Yes (2) Bilateral pneumonia Qualifiers: Pneumonia type: due to unspecified organism Lung location: unspecified part of lung Qualified Code(s): J18.9 - Pneumonia, unspecified organism Is this a current diagnosis for this admission?: Yes (3) Lung cancer Qualifiers: Laterality: unspecified laterality Lung location: unspecified part of lung Qualified Code(s): C34.90 - Malignant neoplasm of unspecified part of unspecified bronchus or lung (4) Malignant neoplasm of lung Qualifiers: Laterality: unspecified laterality Lung location: unspecified part of lung Qualified Code(s): C34.90 - Malignant neoplasm of unspecified part of unspecified bronchus or lung Is this a current diagnosis for this admission?: Yes - Time Time Spent with patient: 25-34 minutes Medications reviewed and adjusted accordingly: Yes Anticipated discharge: Home with Homehealth Within: Other - Inpatient Certification Based on my medical assessment, after consideration of the patient's comorbidities, presenting symptoms, or acuity I expect that the services needed warrant INPATIENT care.: Yes I certify that my determination is in accordance with my understanding of Medicare's requirements for reasonable and necessary INPATIENT services [42 CFR 412.3e].: Yes Medical Necessity: Need Close Monitoring Due to Risk of Patient Decompensation, Need For IV Fluids, Need For Continuous Telemetry Monitoring, Need for IV Antibiotics, Risk of Complication if Not Cared For in Hospital Post Hospital Care: D/C [employer] Documentation - Plan Summary Plan Summary: Continue IV Rocephin and Azithromycin coverage. Follow up on blood and Pleural fluid culture findings.
[2017-02-01] MEDS: ONDANSETRON 4 MG TAB.RAPDIS PO PRN (14:12)
[2017-02-01] MEDS: CEFTRIAXONE 1 GM/D5W RTU 1 GM/50 ML RTUPB IV SCH (18:48)
[2017-02-01] MEDS: ATORVASTATIN CALCIUM 40 MG TABLET PO SCH (21:53)
[2017-02-02] MEDS: PREGABALIN 50 MG CAPSULE PO SCH ×3 (05:55→21:54)
[2017-02-02] MEDS: GABAPENTIN 300 MG CAPSULE PO SCH ×3 (05:55→21:53)
[2017-02-02] MEDS: IPRATROPIUM/ALBUTEROL 0.5-2.5 MG/3 ML AMPUL NEB PRN (05:58)
[2017-02-02] MEDS: OXYCODONE-ACETAMINOPHEN 5-325 MG TABLET PO PRN (06:50)
[2017-02-02] MEDS: ASPIRIN 81 MG TABLET, ENT COATED PO SCH (10:43)
[2017-02-02] MEDS: MULTIVITAMIN TABLET PO SCH (10:43)
[2017-02-02] MEDS: AZITHROMYCIN 500 MG in DEXTROSE 5%-WATER 250 ML IV SCH (10:44)
[2017-02-02] MEDS: DULOXETINE HCL 30 MG CAPSULE.DR PO SCH (10:44)
[2017-02-02] MEDS: FLUTICASONE NASAL SPRAY 50 MCG/SPRY 120 SPRAY/16 GM NASL SCH ×2 (10:45→21:52)
[2017-02-02] MEDS: TIOTROPIUM BROMIDE DPI 5 CAP/KIT (18 MCG/CAP) IH SCH (10:46)
[2017-02-02] MEDS: CAPECITABINE PO SCH ×2 (10:48→21:55)
[2017-02-02] MEDS: XELODA 500 MG PO SCH ×2 (10:49→21:56)
[2017-02-02] MEDS: CEFTRIAXONE 1 GM/D5W RTU 1 GM/50 ML RTUPB IV SCH (17:37)
--- NOTE | 2017-02-02 19:39 | PDOC DISCHARGE SUMMARY ---
General - Admit/Disc Date/PCP Admission Date/Primary Care Provider: 01/30/17 17:42 FARIDEH SCOTT MD Discharge Date: 02/02/17 - Discharge Diagnosis (1) Pleural effusion on left Is this a current diagnosis for this admission?: Yes (2) Malignant neoplasm of lung Is this a current diagnosis for this admission?: Yes (3) Chronic obstructive pulmonary disease Is this a current diagnosis for this admission?: Yes - Additional Information Home Medications: Albuterol Sulfate [Proair HFA] 2 puff IH Q4HP PRN 01/29/17 Aspirin [Ecotrin 81 mg EC Tablet] 81 mg PO DAILY 01/29/17 Atorvastatin Calcium [Lipitor 40 mg Tablet] 40 mg PO QHS 01/29/17 Capecitabine 150 mg PO Q12 01/29/17 Capecitabine [Xeloda] 1,500 mg PO Q12 01/29/17 Duloxetine HCl [Cymbalta] 60 mg PO DAILY 01/29/17 Fluticasone Propionate [Flonase Nasal Birdsnest 50 Mcg/Birdsnest 16 gm] 1 spray NASL Q12 01/29/17 Gabapentin [Neurontin 300 mg Capsule] 300 mg PO Q8 01/29/17 Guaifenesin/Codeine Phosphate [Guaifen-Codeine 100-10 mg/5 ml] 10 ml PO Q8HP PRN 01/29/17 Multivits-Min/Iron/FA/Lutein [Centrum Silver Women Tablet] 1 each PO DAILY 01/29 Ondansetron [Zofran Odt 4 mg Tablet] 8 mg PO Q6HP PRN 01/29/17 Pregabalin [Lyrica 50 mg Capsule] 50 mg PO Q8 01/29/17 Tiotropium [place]win [Spiriva Handihaler 5 Cap/Kit (18 Mcg/Cap)] 1 cap IH DAILY Azithromycin [Zithromax] 500 mg PO DAILY #14 tablet 02/02/17 History of Present Illness History of Present Illness: GIANFRANCO LAWRENCE is a 66 year old female, She has a history of malignant neoplasm of the lung, on chemotherapy, she came to the emergency room for the evaluation of progressive shortness of breath for the last seven days, she said the symptoms increased last night and she was unable to sleep.She was evaluated in the emergency room, and hospital admission was advised. I saw patient on the floor, she is well known to me, she continues to smoke cigarettes despite very severe COPD, malignant neoplasm of the lung on active chemotherapy I requested for CT chest with contrast, it showed extensive chronic appearing changes there was a moderate sized left pleural effusion which was not present on the previous study. The previously described multiple areas of dense lung parenchyma consolidation bilaterally are again identified and similar in appearance to the previous PET CT scan the changes are superimposed on the extensive underlining chronic changes. Also found was a 4.2 cm aneurysm of the ascending aorta stable Hospital Course Hospital Course: Patient was admitted for evaluation and management of pleural effusion, she has underlining malignant neoplasm of the lung, on active chemotherapy, tobacco use disorder. She came to the emergency room for the evaluation of progressive shortness of breath, she was admitted, CT chest was done that showed a new moderate-sized pleural effusion. She underwent thoracentesis about 400 cc of pleural fluid was drained from the pleural space. Malignant pleural effusion was suspected. She was empirically treated with IV antibiotic, azithromycin and Rocephin. Patient want to go home today Physical Exam Vital Signs: Temp Pulse Resp BP Pulse Ox 98.1 F 95 18 118/79 100 02/02/17 15:08 02/02/17 19:00 02/02/17 15:08 02/02/17 15:08 02/02/17 15:08 Intake & Output 02/01/17 02/02/17 02/03/17 06:59 06:59 06:59 Intake Total 3349 3156 1133 Balance 3349 3156 1133 Weight 62.7 kg 62.7 kg General appearance: PRESENT: no acute distress, well-developed, well-nourished Head exam: PRESENT: atraumatic, normocephalic Eye exam: PRESENT: conjunctiva pink, EOMI, PERRLA Mouth exam: PRESENT: moist, tongue midline Neck exam: PRESENT: full ROM Respiratory exam: PRESENT: clear to auscultation cordell Cardiovascular exam: PRESENT: RRR, +S1, +S2 Vascular exam: PRESENT: normal capillary refill GI/Abdominal exam: PRESENT: normal bowel sounds, soft Rectal exam: PRESENT: deferred Neurological exam: PRESENT: alert, awake, oriented to person, oriented to place , oriented to time, oriented to situation, CN II-XII grossly intact Psychiatric exam: PRESENT: appropriate affect, normal mood Skin exam: PRESENT: dry, intact, warm Results Laboratory Results: 02/01/17 06:50 02/01/17 06:50 Impressions: Chest CT 01/29/17 00:00 IMPRESSION: Extensive chronic appearing changes are again identified. The previously described multiple areas of dense lung parenchymal consolidation bilaterally are again identified and are similar in appearance to the previous PET-CT scan. These changes are superimposed on extensive underlying chronic changes. Interval development of a moderate size left pleural effusion. Other findings as noted above Thoracentesis Ultrasound 01/30/17 00:00 IMPRESSION: SUCCESSFUL THORACENTESIS USING ULTRASOUND GUIDANCE. Chest X-Ray 01/30/17 14:00 IMPRESSION: NO PNEUMOTHORAX FOLLOWING THORACENTESIS. NO CHANGE IN APPEARANCE OF THE CHEST.
[2017-02-02] MEDS: ATORVASTATIN CALCIUM 40 MG TABLET PO SCH (21:52)
[2017-02-02 22:26] VITALS: BP 115/72
== END 2017-02-02 23:05 | disposition home or self-care (01) | DRG 181 ==
LOC: ER 07:19 → EH 10:51 → UNDOADMIN 10:51 → 3W 12:54 → EH 12:54 → 3W 01-30 17:42 → EH 01-30 17:42
PROVIDERS: ADMIT Internal Medicine; ATTEND Internal Medicine
PROC: 0W9B3ZX Drainage of Left Pleural Cavity, Percutaneous Approach, Diagnostic (ICD-10-PCS; principal; 2017-01-30)
DX: C34.90 Malignant neoplasm of unspecified part of unspecified bronchus or lung (principal); J91.0 Malignant pleural effusion; F17.210 Nicotine dependence, cigarettes, uncomplicated; J44.9 Chronic obstructive pulmonary disease, unspecified; E78.5 Hyperlipidemia, unspecified; M19.90 Unspecified osteoarthritis, unspecified site; I71.4 Abdominal aortic aneurysm, without rupture; Z66 Do not resuscitate; F32.9 Major depressive disorder, single episode, unspecified; Z90.49 Acquired absence of other specified parts of digestive tract; Z90.710 Acquired absence of both cervix and uterus; Z88.6 Allergy status to analgesic agent; Z99.81 Dependence on supplemental oxygen; Z79.899 Other long term (current) drug therapy; Z85.3 Personal history of malignant neoplasm of breast
CPT/HCPCS: 32555; 36415; 36600; 71010; 71260; 80053; 81001; 82150; 82550; 82553; 82803; 82945; 83615; 83880; 84157; 84484; 85025; 85379; 85610; 85730; 87015; 87040; 87070; 87075; 87101; 87116; 87205; 87206; 87252; 89050; 93005; 93010; 94640; 99285; J0456; J0696; J1642; J3490; J7060; J7620; S0119

== ENCOUNTER 2017-03-03 18:40 | Inpatient (IN) | payer MEDICARE, OTHER ==
[2017-03-03] MEDS ORDERED: NORMAL SALINE 1000 ML 1,000 ML IV ONE (19:59)
[2017-03-03] MEDS ORDERED: ALBUTEROL SULFATE 0.083% NEB 2.5 MG/3 ML AMPUL NEB ONE ×2 (20:00→23:57)
[2017-03-03] MEDS ORDERED: METHYLPREDNISOLONE INJ 125 MG/2 ML SDV IV ONE (20:00)
--- NOTE | 2017-03-03 20:53 | RADIOLOGY REPORT (SQ) ---
EXAM DESCRIPTION: CHEST PA/LAT COMPLETED DATE/TIME: 03/03/2017 8:21 pm REASON FOR STUDY: cough, SOB, lung mets, pleural effusion COMPARISON: 01/30/2017 EXAM PARAMETERS: NUMBER OF VIEWS: two views TECHNIQUE: Digital Frontal and Lateral radiographic views of the chest acquired. RADIATION DOSE: NA LIMITATIONS: none FINDINGS: LUNGS AND PLEURA: Increased patchy airspace and nodular opacities bilaterally, upper lobe predominance. Increased interstitial thickening bilaterally. Small left pleural effusion. No pneum othorax. MEDIASTINUM AND HILAR STRUCTURES: Stable. HEART AND VASCULAR STRUCTURES: Stable. BONES: No acute findings. HARDWARE: Left chest port. OTHER: No other significant finding. IMPRESSION: Increased patchy airspace and nodular opacities bilaterally, upper lobe predominance. I ncreased interstitial thickening bilaterally. Small left pleural effusion. No pneumothorax. TECHNICAL DOCUMENTATION: JOB ID: [id number] [employer]- All Rights Reserved
[2017-03-03 21:27] LABS: ABSOLUTE EOSINOPHILS # (AUTO) 0.1 10^3/uL (0.0-0.6); ABSOLUTE LYMPHOCYTES (AUTO) 1.6 10^3/uL (0.5-4.7); ABSOLUTE MONOCYTES (AUTO) 0.5 10^3/uL (0.1-1.4); ABSOLUTE NEUT (AUTO) 5.6 10^3/uL (1.7-8.2); BASOPHILS % (AUTO) 0.6 % (0-2); EOSINOPHILS % (AUTO) 1.7 % (0-6); HEMATOCRIT 35.8 % (36.0-47.0); HGB HCT DIFFERENCE 0.2; LYMPHOCYTES % (AUTO) 20.3 % (13-45); MEAN CORPUSCULAR HEMOGLOBIN 34.2 pg (27.0-33.4); MEAN CORPUSCULAR HGB CONC 33.6 g/dL (32.0-36.0); MEAN CORPUSCULAR VOLUME 102 fl (80-97); MONOCYTES % (AUTO) 6.9 % (3-13); RED BLOOD COUNT 3.51 10^6/uL (3.72-5.28); RED CELL DISTRIBUTION WIDTH 16.3 % (11.5-14.0); SEGMENTED NEUTROPHILS % (AUTO) 70.5 % (42-78); WHITE BLOOD COUNT 7.9 10^3/uL (4.0-10.5)
[2017-03-03 21:30] LABS: VENOUS BLOOD BASE EXCESS -0.8 mmol/L; VENOUS BLOOD HCO3 23.6 mmol/L (20-32); VENOUS BLOOD PCO2 38.3 mmHg (35-63); VENOUS BLOOD PH 7.41 (7.30-7.42)
[2017-03-03 21:58] LABS: ALANINE AMINOTRANSFERASE 27 U/L (9-52); ALBUMIN 3.8 g/dL (3.5-5.0); ALKALINE PHOSPHATASE 98 U/L (38-126); ANION GAP 12 (5-19); ASPARTATE AMINO TRANSFERASE 21 U/L (14-36); BILIRUBIN,DIRECT 0.5 mg/dL (0.0-0.4); BLOOD UREA NITROGEN 9 mg/dL (7-20); CALCIUM 8.7 mg/dL (8.4-10.2); CARBON DIOXIDE 21 mmol/L (22-30); CHLORIDE 102 mmol/L (98-107); CREATINE KINASE 99 U/L (30-135); CREATININE RESULT 0.62 mg/dL (0.52-1.25); GLUCOSE 90 mg/dL (75-110); POTASSIUM 3.8 mmol/L (3.6-5.0); SODIUM 134.7 mmol/L (137-145); TOTAL PROTEIN 6.7 g/dL (6.3-8.2)
[2017-03-03 22:03] LABS: CREATINE KINASE MB 1.43 ng/mL (<4.55); TROPONIN I < 0.012 ng/mL
--- NOTE | 2017-03-03 23:03 | RADIOLOGY REPORT (SQ) ---
EXAM DESCRIPTION: CTA CHEST COMPLETED DATE/TIME: 03/03/2017 10:37 pm REASON FOR STUDY: cancer, SOB, tachycardia, PE? COMPARISON: 01/29/2017 TECHNIQUE: CT scan of the chest performed using helical scanning technique with dynamic intravenous contrast injection. Images reviewed with lung, soft tissue and bone windows. Reconstructed coronal and sagittal MPR images reviewed. Additional 3 dimensional post-processing performed to develop Maximal Intensity Projection images (MS P). All images stored on PACS. All CT scanners at this facility use dose modulation, iterative reconstruction, and/or weight based d osing when appropriate to reduce radiation dose to as low as reasonably achievable (ALARA). [facility]: Dose Right [facility]: CareDose [facility]: Dose Right [facility]: Teradose 4D [facility]: [employer] CONTRAST TYPE AND DOSE: contrast/concentration: Isovue 370.00 mg/ml; Total Contrast Delivered: 80.0 ml; Total Saline Delivered: 65.0 ml RENAL FUNCTION: GFR > 60. RADIATION DOSE: Up-to-date CT equipment and radiation dose reduction techniques were employed. CTDIv ol: 15.5 mGy. DLP: 597 mGy-cm. . LIMITATIONS: None. FINDINGS: LUNGS AND PLEURA: Mildly Increasing pulmonary masses and consolidation, left greater than right. Similar sized moderate left pleural effusion. AORTA AND GREAT VESSELS: No aneurysm or dissection. HEART: No pericardial effusion. PULMONARY ARTERIES: No emboli visualized in the main pulmonary arteries or the segmental branches. HILAR AND MEDIASTINAL STRUCTURES: Similar adenopathy. HARDWARE: None in the chest. UPPER ABDOMEN: Stable findings. THYROID AND OTHER SOFT TISSUES: No masses. No adenopathy. BONES: No acute or significant finding. 3D MIPS: Confirm above findings. OTHER: No other significant finding. IMPRESSION: No emboli visualized in the main pulmonary arteries or the segmental branches. Mildly Increasing pulmonary masses and consolidation. Similar sized moderate left pleural effusion. TECHNICAL DOCUMENTATION: JOB ID: [id number] Quality ID # [id number]: Final reports with documentation of one or more dose reduction techniques (e.g., Au tomated exposure control, adjustment of the mA and/or kV according to patient size, use of iterative reconstruction technique) 2010 [employer]- All Rights Reserved
[2017-03-03] MEDS ORDERED: CEFEPIME 1 GM/D5W RTU 1 GM/50 ML RTUPB IV ONE (23:57)
[2017-03-03] MEDS ORDERED: AZITHROMYCIN INJ 500 MG VIAL IV ONE (23:57)
--- NOTE | 2017-03-04 00:06 | ER Document Report ---
ED General - General Chief Complaint: Breathing Difficulty Stated Complaint: DIFFICULTY BREATING Time Seen by Provider: 03/03/17 19:48 TRAVEL OUTSIDE OF THE [place] IN LAST 30 DAYS: No - HPI Notes: 59-year-old female with a history of stage IV breast cancer that is metastatic to her lungs presents emergency department complaining with three-week history of shortness of breath. States that she actually had a large amount of fluid drained off of her left long and then was eventually sent home however she has been having increasing shortness of breath over the past 4-5 days, saw Dr. Scott today and was started on Levaquin, shortly after taking her first dose of Levaquin she started having itching, took Benadryl but then passed out for approximately 2 hours. States she woke up in her bed after her moved her there. States that her cough has been more productive than usual, she is always on 2 L of oxygen via nasal cannula at home however she has been using more oxygen than usual today, 3-4 L/min instead. Denies any fevers, denies any nausea, admits significantly increased shortness of breath. Denies any chest pain. Stopped chemotherapy on Thursday. - Related Data Allergies/Adverse Reactions: aspirin [Aspirin] Allergy (Mild, Verified 03/03/17 19:10) diazepam [From Valium] Allergy (Verified 03/03/17 19:10) levofloxacin [From Levaquin] Allergy (Verified 03/03/17 19:10) morphine [Morphine] Allergy (Verified 03/03/17 19:10) Home Medications: Current Home Medications Levofloxacin 750 mg PO DAILY 03/03/17 [History] Tiotropium Br/Olodaterol HCl [Stiolto Respimat Inhal [place]] 2.5 gm PO BID [History] Past Medical History - General Information source: Patient - Social History Smoking Status: Former Smoker - Quit 4 weeks ago. Chew tobacco use (# tins/day): No Frequency of alcohol use: None Drug Abuse: None Family History: Reviewed & Not Pertinent Patient has suicidal ideation: No Patient has homicidal ideation: No - Past Medical History Cardiac Medical History: Reports: Hx Hypercholesterolemia Denies: Hx Coronary Artery Disease, Hx Heart Attack, Hx Hypertension Pulmonary Medical History: Reports: Hx COPD Denies: Hx Asthma, Hx Bronchitis, Hx Pneumonia Neurological Medical History: Denies: Hx Cerebrovascular Accident, Hx Seizures Renal/ Medical History: Denies: Hx Peritoneal Dialysis Malignancy Medical History: Reports: Hx Breast Cancer, Hx Lung Cancer Musculoskeltal Medical History: Reports Hx Arthritis Psychiatric Medical History: Reports: Hx Depression Past Surgical History: Reports: Hx Appendectomy, Hx Breast Surgery - R lumpectomy, Hx Hysterectomy, Hx Nose Surgery - Immunizations Hx Diphtheria, Pertussis, Tetanus Vaccination: Yes Hx Pneumococcal Vaccination: 09/03/13 Review of Systems - Review of Systems Constitutional: See HPI, Weakness EENT: No symptoms reported Cardiovascular: See HPI, Syncope Respiratory: See HPI, Cough, Short of breath, Wheezing, Other - lung cancer. denies: Hemoptysis Gastrointestinal: No symptoms reported Neurological/Psychological: Lost consciousness -: Yes All other systems reviewed and negative Physical Exam - Vital signs Vitals: Resp BP Pulse Ox 17 114/74 99 03/03/17 19:47 03/03/17 19:47 03/03/17 19:47 Interpretation: Normal - Notes Notes: GENERAL: Alert, interacts well. Appears short of breath. HEAD: Normocephalic, atraumatic EYES: Pupils equal, round and reactive to light, extraocular movements intact. ENT: Oral mucosa moist, tongue midline. NECK: Full range of motion, supple, trachea midline. LUNGS: Tachypneic, inspiratory rhonchi, expiratory wheezing, decreased lung sounds in the left lower lobe, no rales, quite dyspneic on exertion. HEART: Regular rate and rhythm, no murmurs, gallops, rubs. ABDOMEN: Soft, nontender, nondistended, bowel sounds present in all 4 quadrants. EXTREMITIES: Moves all 4 extremities spontaneously, no edema, radial and dorsalis pedis pulses 2/4 bilaterally. No cyanosis. NEUROLOGICAL: Alert and oriented x3, normal speech. PSYCH: Normal mood, normal affect. SKIN: Warm, Dry, normal turgor, no rashes or lesions noted. Course - Re-evaluation Re-evalutation: 03/04/17 00:13 CBC does not show any leukocytosis, venous blood gas grossly unremarkable, CMP shows slightly low sodium of 134.7, cardiac enzymes negative, proBNP normal, chest x-ray shows increasing patchy airspace and nodular opacities bilaterally, upper lobe predominance, increased interstitial thickening bilaterally, small left pleural effusion, no pneumothorax. Given her increasing shortness of breath and her history of cancer I did feel it prudent to check for a pulmonary embolism, CT of the chest shows mildly increasing pulmonary masses and consolidation left greater than right, similarly sized left pleural effusion, no pulmonary emboli in the main [place] arteries or segmental branches. Wheezing improved with steroids and breathing treatments however patient is still quite dyspneic on exertion, patient does appear to have increasing pneumonia bilaterally some of which may be postobstructive, patient likely also has a component of COPD. Patient was started on cefepime and azithromycin given her risk for Pseudomonas, discussed the patient with Dr. Scott who agrees to admit the patient to the hospital for her pneumonia. - Vital Signs Vital signs: Temp Pulse Resp BP Pulse Ox 24 H 124/70 96 03/03/17 23:01 03/03/17 23:01 03/03/17 23:01 - Laboratory Result Diagrams: 03/03/17 21:08 03/03/17 21:08 Laboratory results interpreted by me: 03/03/17 03/03/17 21:08 21:08 RBC 3.51 L Hct 35.8 L MCV 102 H MCH 34.2 H RDW 16.3 H Sodium 134.7 L Carbon Dioxide 21 L Direct Bilirubin 0.5 H - EKG Interpretation by Me Additional EKG results interpreted by me: 03/04/17 00:15 EKG shows sinus rhythm at a rate of 70, concordant T-wave inversions in lead III , normal axis, normal intervals, poor R-wave progression, no ST segment elevations or depressions per my interpretation. Critical Care Note - Critical Care Note Total time excluding time spent on procedures (mins): 45 Discharge - Discharge Clinical Impression: Pleural effusion on left Lung cancer Qualifiers: Laterality: left Lung location: upper lobe of lung Qualified Code(s): C34.12 - Malignant neoplasm of upper lobe, left bronchus or lung Chronic obstructive pulmonary disease Qualifiers: COPD type: COPD with acute exacerbation Qualified Code(s): J44.1 - Chronic obstructive pulmonary disease with (acute) exacerbation Bilateral pneumonia Qualifiers: Pneumonia type: due to unspecified organism Lung location: upper lobe of lung Qualified Code(s): J18.9 - Pneumonia, unspecified organism Breast cancer metastasized to lung Qualifiers: Laterality: unspecified laterality Qualified Code(s): C50.919 - Malignant neoplasm of unspecified site of unspecified female breast; C78.00 - Secondary malignant neoplasm of unspecified lung Condition: Poor Disposition: ADMITTED INPATIENT Admitting Provider: Toya Unit Admitted: Telemetry Referrals: FARIDEH SCOTT MD [Primary Care Provider] - Follow up as needed
[2017-03-04] MEDS ORDERED: ALBUTEROL SULFATE HFA (90 MCG/PUFF) 200 PUFF/8.5 GM MDI IH PRN (02:28)
[2017-03-04] MEDS: PREGABALIN 50 MG CAPSULE PO SCH ×3 (05:28→18:30)
[2017-03-04 06:29] LABS: ANION GAP 9 (5-19); BLOOD UREA NITROGEN 9 mg/dL (7-20); CALCIUM 9.1 mg/dL (8.4-10.2); CARBON DIOXIDE 22 mmol/L (22-30); CHLORIDE 109 mmol/L (98-107); CREATININE RESULT 0.56 mg/dL (0.52-1.25); GLUCOSE 294 mg/dL (75-110); POTASSIUM 4.4 mmol/L (3.6-5.0); SODIUM 139.5 mmol/L (137-145)
[2017-03-04 06:39] LABS: HEMATOCRIT 35.3 % (36.0-47.0); HEMOGLOBIN 11.9 g/dL (12.0-15.5); HGB HCT DIFFERENCE 0.4; MEAN CORPUSCULAR HEMOGLOBIN 34.5 pg (27.0-33.4); MEAN CORPUSCULAR HGB CONC 33.7 g/dL (32.0-36.0); MEAN CORPUSCULAR VOLUME 102 fl (80-97); RED BLOOD COUNT 3.46 10^6/uL (3.72-5.28); RED CELL DISTRIBUTION WIDTH 16.1 % (11.5-14.0); WHITE BLOOD COUNT 5.7 10^3/uL (4.0-10.5)
[2017-03-04 07:10] LABS: BASOPHILS % (MANUAL) 0 % (0-2); EOSINOPHILS % (MANUAL) 0 % (0-6); LYMPHOCYTES % (MANUAL) 3 % (13-45); TOTAL CELLS COUNTED 100
[2017-03-04 07:12] LABS: ANISOCYTOSIS 1+; BURR CELLS SLIGHT; OVALOCYTES SLIGHT; POIKILOCYTOSIS SLIGHT; POLYCHROMASIA SLIGHT
[2017-03-04 08:50] LABS: PROTHROMBIN TIME 13.4 SEC (11.4-15.4)
[2017-03-04] MEDS ORDERED: DULOXETINE HCL 30 MG CAPSULE.DR PO SCH (10:00)
[2017-03-04] MEDS ORDERED: ASPIRIN 81 MG TABLET, ENT COATED PO SCH (10:00)
[2017-03-04] MEDS ORDERED: [UNRECOGNIZED DRUG - OTHER] PO SCH (10:00)
[2017-03-04] MEDS ORDERED: TIOTROPIUM BR PO SCH (10:00)
[2017-03-04] MEDS ORDERED: OLODATEROL HCL PO SCH (10:00)
[2017-03-04] MEDS: CEFEPIME 2 GM/D5W RTU 2 GM/50 ML RTUPB IV SCH ×2 (10:52→21:57)
--- NOTE | 2017-03-04 10:57 | RADIOLOGY REPORT (SQ) ---
EXAM DESCRIPTION: CHEST SINGLE VIEW COMPLETED DATE/TIME: 03/04/2017 10:34 am REASON FOR STUDY: S/P LT THORACENTESIS COMPARISON: Chest films 03/03/2017, CT angio chest 03/03/2017 Left thoracentesis 03/04/2017 EXAM PARAMETERS: NUMBER OF VIEWS: One view. TECHNIQUE: Single frontal radiographic view of the chest acquired. RADIATION DOSE: NA LIMITATIONS: None. FINDINGS: LUNGS AND PLEURA: Immediately post left thoracentesis with removal of 250 mL of serosangui neous fluid. No left-sided pneumothorax. A rind of pleural thickening is present with stable consol idation in the right and left lungs. No acute infiltrates. No right pleural effusion or pneumothorax. MEDIASTINUM AND HILAR STRUCTURES: No masses. Contour normal. HEART AND VASCULAR STRUCTURES: Heart normal in size. Normal vasculature. BONES: No acute findings. HARDWARE: Left permanent central line tip superior vena cava. OTHER: Surgical clips post right axillary dissection IMPRESSION: No pneumothorax post left thoracentesis. TECHNICAL DOCUMENTATION: JOB ID: [id number]
--- NOTE | 2017-03-04 10:59 | RADIOLOGY REPORT (SQ) ---
EXAM DESCRIPTION: U/S THORACENTESIS WITH IMAGING COMPLETED DATE/TIME: 03/04/2017 10:42 am REASON FOR STUDY: malignant neoplasm of lung, left pleural effusion COMPARISON: 01/30/[address] chest 01/29/2017, 03/03/2017 LIMITATIONS: None. PROCEDURE: Procedure, risks, benefit, and alternative explained to patient who then gave written con sent. The posterior left chest wall was marked using ultrasound guidance. A time-out was called for correct marking verification. Chest prepped and draped using sterile technique. Local anesthesia ac hieved using 7 ml of 1% lidocaine injection. A 5fr needle/catheter set was introduced into the left pleural space. Fluid was aspirated. The catheter was removed and the entry site was covered with st erile bandage. No immediate complications noted. Post procedure chest film demonstrates no pneumotho rax. Fluid was sent for testing as per Dr. Pittman Images acquired during the procedure were stored on PACS. FINDINGS: ENTRY SITE: Left posterior pleural space FLUID VOLUME: 250 mL of serosanguineous fluid FLUID ANALYSIS: Yes, sent for testing OTHER: Post procedure chest x-ray dictated separately demonstrates no left-sided pneumothorax IMPRESSION: SUCCESSFUL THORACENTESIS USING ULTRASOUND GUIDANCE. COMMENT: Patient medication list reviewed: Yes- Quality ID# [id number]:Eligible professional attests to doc umenting in the medical record they obtained, updated, or reviewed the patient's current medications. Quality ID #[id number]: Final reports for procedures using fluoroscopy that document radiation exposure yasmeen jesenia, or exposure time and number of fluorographic images (if radiation exposure indices are not avail able) TECHNICAL DOCUMENTATION: JOB ID: [id number] [employer]- All Rights Reserved
[2017-03-04 11:22] LABS: FLUID TYPE PLEURAL
[2017-03-04 11:23] LABS: FLUID APPEARANCE TURBID; FLUID RBC DILUENT USED SALINE; FLUID RBC DILUTION FACTOR 10; FLUID RBC SIDE 1 388; FLUID RBC SIDE 2 376; TOTAL RBC SQUARES COUNTED FLD 5
--- NOTE | 2017-03-04 11:51 | EKG REPORT ---
SEVERITY:- NORMAL ECG - SINUS RHYTHM : Confirmed by: Juan Cohen 04-Mar-2017 11:50:44
[2017-03-04] MEDS: OXYCODONE HCL IR 5 MG TABLET PO PRN (12:36)
--- NOTE | 2017-03-04 14:27 | RADIOLOGY REPORT (SQ) ---
EXAM DESCRIPTION: CHEST SINGLE VIEW COMPLETED DATE/TIME: 03/04/2017 1:01 pm REASON FOR STUDY: 2 HOURS S/P LT THORACENTESIS COMPARISON: 03/04/2017 EXAM PARAMETERS: NUMBER OF VIEWS: One view. TECHNIQUE: Single frontal radiographic view of the chest acquired. RADIATION DOSE: NA LIMITATIONS: None. FINDINGS: LUNGS AND PLEURA: There is opacification left upper and lower lobes and in the right upper lobe. There is scarring in the right upper lobe. No pneumothorax is seen on the left. There is re duced volume in the left lung. MEDIASTINUM AND HILAR STRUCTURES: Mediastinum is shifted to the left. HEART AND VASCULAR STRUCTURES: Heart normal in size. Normal vasculature. BONES: No acute findings. HARDWARE: Injection port on the left. OTHER: No other significant finding. IMPRESSION: Lung guillen are stable. There is no pneumothorax. TECHNICAL DOCUMENTATION: JOB ID: [id number]
[2017-03-04] MEDS ORDERED: ALBUTEROL SULFATE HFA (90 MCG/PUFF) 8 GM MDI (1 MDI/ER DISP) IH PRN (16:48)
[2017-03-04] MEDS ORDERED: OXYCODONE HCL IR 5 MG TABLET PO PRN (16:48)
--- NOTE | 2017-03-04 16:48 | PDOC H&P ---
History of Present Illness Admission Date/PCP: 03/04/17 02:02 FARIDEH SCOTT MD History of Present Illness: GIANFRANCO LAWRENCE is a 67 year old female, she has a history of malignant neoplasm of the lung, she came to the emergency room for evaluation of progressive shortness of breath. I saw her in the office on Thursday that was 2 days ago when she came to the office for evaluation of shortness of breath, there was associated productive cough, the cough was colored, she was prescribed antibiotic and she was advised to go to emergency room if symptoms persist. She could emergency room last night because of worsening of her symptoms, in the emergency room she was seen and evaluated, CTA chest was done he showed increasing pulmonary masses and consolidation left more than right with moderate sized left pleural effusion there is no emboli visualized in the main pulmonary arteries or the segmental branches. She has similar presentation last month and she underwent thoracentesis. She also had thoracentesis this morning, she was scheduled for outpatient PET scan for Thursday, she follows with Dr. Fermin, oncology, consultation will be requested from Dr. Fermin. She is presently a DNR status it is possible that there could be associated infection but is seems that the primary problem is the malignancy I am not sure what the plan is from the standpoint of oncology, she be treated with IV antibiotic, azithromycin and cefepime she stated that the p.o. Levaquin that was prescribed outpatient made her sick. Past Medical History Cardiac Medical History: Reports: Hyperlipidema Pulmonary Medical History: Reports: Chronic Obstructive Pulmonary Disease (COPD) Malignancy Medical History: Reports: Breast Cancer, Lung Cancer Musculoskeltal Medical History: Reports: Arthritis Psychiatric Medical History: Reports: Depression Past Surgical History Past Surgical History: Reports: Appendectomy, Hysterectomy Social History Smoking Status: Former Smoker Number of Years Smokin Last Time Smoked: 02/03/17 Frequency of Alcohol Use: None Hx Recreational Drug Use: No Drugs: None Hx Prescription Drug Abuse: No Family History Family History: Reviewed & Not Pertinent Parental Family History Reviewed: Yes Children Family History Reviewed: Yes Sibling(s) Family History Reviewed.: Yes Medication/Allergy Home Medications: Albuterol Sulfate [Proair HFA] 2 puff IH Q4HP PRN 03/04/17 Aspirin [Aspirin EC] 81 mg PO DAILY 03/04/17 Atorvastatin Calcium [Lipitor 40 mg Tablet] 40 mg PO QHS 03/04/17 Duloxetine HCl [Cymbalta] 60 mg PO DAILY 03/04/17 Levofloxacin [Levaquin 750 mg Tablet] 750 mg PO DAILY 03/04/17 Oxycodone HCl [Oxy-Ir 5 mg Tablet] 5 mg PO Q6HP PRN 03/04/17 Pregabalin [Lyrica 50 Mg Capsule] 50 mg PO QPM 03/04/17 Pyridoxine HCl [Vitamin B-6] 50 mg PO DAILY 03/04/17 Tiotropium Br/Olodaterol HCl [Stiolto Respimat Inhal [place]] 2 puff IH DAILY Allergies/Adverse Reactions: aspirin [Aspirin] Allergy (Mild, Verified 03/03/17 19:10) diazepam [From Valium] Allergy (Verified 03/03/17 19:10) levofloxacin [From Levaquin] Allergy (Verified 03/03/17 19:10) morphine [Morphine] Allergy (Verified 03/03/17 19:10) Review of Systems Constitutional: PRESENT: fatigue Eyes: ABSENT: visual disturbances Ears: ABSENT: hearing changes Cardiovascular: PRESENT: dyspnea on exertion Respiratory: PRESENT: cough, dyspnea Gastrointestinal: ABSENT: abdominal pain, constipation, diarrhea, hematemesis, hematochezia, nausea, vomiting Genitourinary: ABSENT: dysuria, hematuria Musculoskeletal: ABSENT: joint swelling Integumentary: ABSENT: rash, wounds Neurological: ABSENT: abnormal gait, abnormal speech, confusion, dizziness, focal weakness, syncope Psychiatric: ABSENT: anxiety, depression, homidical ideation, suicidal ideation Endocrine: ABSENT: cold intolerance, heat intolerance, menstrual abnormalities, polydipsia, polyuria Hematologic/Lymphatic: ABSENT: easy bleeding, easy bruising, lymphadenopathy Physical Exam Vital Signs: Temp Pulse Resp BP Pulse Ox 98.1 F 70 18 117/63 98 03/04/17 15:44 03/04/17 15:44 03/04/17 15:44 03/04/17 15:44 03/04/17 15:44 Intake & Output 03/03/17 03/04/17 03/05/17 06:59 06:59 06:59 Intake Total 550 Balance 550 General appearance: PRESENT: severe distress Head exam: PRESENT: atraumatic, normocephalic Eye exam: PRESENT: conjunctiva pink, EOMI, PERRLA Ear exam: PRESENT: normal external ear exam Mouth exam: PRESENT: moist, tongue midline Neck exam: PRESENT: full ROM Respiratory exam: PRESENT: wheezes Cardiovascular exam: PRESENT: RRR, +S1, +S2 Pulses: PRESENT: normal dorsalis pedis pul, +2 pedal pulses bilateral Vascular exam: PRESENT: normal capillary refill GI/Abdominal exam: PRESENT: normal bowel sounds, soft Rectal exam: PRESENT: deferred Neurological exam: PRESENT: alert, CN II-XII grossly intact Psychiatric exam: PRESENT: appropriate affect, normal mood Skin exam: PRESENT: dry, intact, warm Results Laboratory Results: 03/04/17 05:30 03/04/17 05:30 03/04/17 03/04/17 03/04/17 05:30 05:30 10:20 WBC 5.7 RBC 3.46 L Hgb 11.9 L Hct 35.3 L MCV 102 H MCH 34.5 H MCHC 33.7 RDW 16.1 H Plt Count 319 Seg Neutrophils % Not Reportable Lymphocytes % Not Reportable Monocytes % Not Reportable Eosinophils % Not Reportable Basophils % Not Reportable Absolute Neutrophils Not Reportable Absolute Lymphocytes Not Reportable Absolute Monocytes Not Reportable Absolute Eosinophils Not Reportable Absolute Basophils Not Reportable Sodium 139.5 Potassium 4.4 Chloride 109 H Carbon Dioxide 22 Anion Gap 9 BUN 9 Creatinine 0.56 Est GFR ( Amer) > 60 Est GFR (Non-Af Amer) > 60 Glucose 294 H Calcium 9.1 Fluid Type PLEURAL Fluid Source LUNG Fluid Color RED Fluid Appearance TURBID Fluid Viscosity LIQUID Fluid WBC 2075 Fluid RBC [id number] Impressions: Chest/Abdomen CTA 03/03/17 21:20 IMPRESSION: No emboli visualized in the main pulmonary arteries or the segmental branches. Mildly Increasing pulmonary masses and consolidation. Similar sized moderate left pleural effusion. Chest X-Ray 03/04/17 00:00 IMPRESSION: Lung guillen are stable. There is no pneumothorax. Thoracentesis Ultrasound 03/04/17 00:00 IMPRESSION: SUCCESSFUL THORACENTESIS USING ULTRASOUND GUIDANCE. Assessment & Plan - Diagnosis (1) Malignant pleural effusion Is this a current diagnosis for this admission?: Yes Plan: Thoracentesis was done (2) Malignant neoplasm of left lung Qualifiers: Lung location: unspecified part of lung Qualified Code(s): C34.92 - Malignant neoplasm of unspecified part of left bronchus or lung Is this a current diagnosis for this admission?: Yes (3) Chronic obstructive pulmonary disease Qualifiers: COPD type: unspecified COPD Qualified Code(s): J44.9 - Chronic obstructive pulmonary disease, unspecified Is this a current diagnosis for this admission?: Yes (4) Pneumonia Qualifiers: Pneumonia type: due to unspecified organism Laterality: bilateral Lung location: unspecified part of lung Qualified Code(s): J18.9 - Pneumonia, unspecified organism Is this a current diagnosis for this admission?: Yes Plan: I cannot rule out pneumonia, she will be empirically be treated with IV antibiotic, azithromycin and cefepime
[2017-03-04] MEDS ORDERED: (PENDING PHARMACY ID) (Tiotropium Br/Olodaterol Hcl [Stiolto Respimat Inhal Spray] 2 PUFF) IH SCH (17:00)
[2017-03-04] MEDS ORDERED: ASPIRIN 81 MG TABLET, ENT COATED PO ONE (17:30)
[2017-03-04 17:43] LABS: HEMATOCRIT 35.6 % (36.0-47.0); HGB HCT DIFFERENCE 0.4; MEAN CORPUSCULAR HEMOGLOBIN 34.5 pg (27.0-33.4); MEAN CORPUSCULAR HGB CONC 33.9 g/dL (32.0-36.0); MEAN CORPUSCULAR VOLUME 102 fl (80-97); RED BLOOD COUNT 3.49 10^6/uL (3.72-5.28); RED CELL DISTRIBUTION WIDTH 16.5 % (11.5-14.0); WHITE BLOOD COUNT 9.6 10^3/uL (4.0-10.5)
[2017-03-04 17:56] LABS: PARTIAL THROMBOPLASTIN TIME 27.7 SEC (23.5-35.8); PROTHROMBIN TIME 12.7 SEC (11.4-15.4)
[2017-03-04] MEDS ORDERED: DULOXETINE HCL 30 MG CAPSULE.DR PO ONE (18:30)
[2017-03-04] MEDS: PYRIDOXINE HCL 50 MG TABLET PO SCH (18:41)
[2017-03-04] MEDS: ATORVASTATIN CALCIUM 40 MG TABLET PO SCH (21:57)
[2017-03-04] MEDS: AZITHROMYCIN 500 MG in DEXTROSE 5%-WATER 250 ML IV SCH (21:57)
[2017-03-04] MEDS ORDERED: ATORVASTATIN CALCIUM 40 MG TABLET PO SCH (22:00)
[2017-03-05] MEDS: ENOXAPARIN SODIUM INJ 40 MG/0.4 ML DISP.SYRIN SUBCUT SCH (10:44)
[2017-03-05] MEDS: DULOXETINE HCL 30 MG CAPSULE.DR PO SCH (10:44)
[2017-03-05] MEDS: ALBUTEROL SULFATE HFA (90 MCG/PUFF) 200 PUFF/8.5 GM MDI IH PRN (10:45)
[2017-03-05] MEDS: ASPIRIN 81 MG TABLET, ENT COATED PO SCH (10:46)
[2017-03-05] MEDS: TIOTROPIUM PO SCH (10:46)
[2017-03-05] MEDS: [UNRECOGNIZED DRUG - OTHER] PO SCH (10:46)
[2017-03-05] MEDS: CEFEPIME 2 GM/D5W RTU 2 GM/50 ML RTUPB IV SCH ×2 (10:51→22:23)
[2017-03-05] MEDS: PYRIDOXINE HCL 50 MG TABLET PO SCH (17:17)
[2017-03-05] MEDS: PREGABALIN 50 MG CAPSULE PO SCH (17:17)
[2017-03-05] MEDS ORDERED: BISACODYL 5 MG TABEC PO ONE (18:30)
[2017-03-05] MEDS: IPRATROPIUM/ALBUTEROL 0.5-2.5 MG/3 ML AMPUL NEB PRN (18:44)
--- NOTE | 2017-03-05 20:28 | PDOC PROGRESS REPORT ---
Subjective Progress Note for:: 03/05/17 Subjective:: Patient was seen by the bedside, she was seen by oncologist Dr. Law. The cytology from the pleural fluid was negative for malignant cells/carcinoma cells. She will continue IV antibiotic.She also complains of constipation Physical Exam Vital Signs: Temp Pulse Resp BP Pulse Ox 98.2 F 70 26 H 130/73 H 98 03/05/17 20:00 03/05/17 20:00 03/05/17 20:00 03/05/17 20:00 03/05/17 15:53 Intake & Output 03/04/17 03/05/17 03/06/17 06:59 06:59 06:59 Intake Total 550 2810 1920 Balance 550 2810 1920 General appearance: PRESENT: mild distress Eye exam: PRESENT: PERRLA Respiratory exam: PRESENT: rhonchi Cardiovascular exam: PRESENT: +S1, +S2 GI/Abdominal exam: PRESENT: soft Neurological exam: PRESENT: alert, CN II-XII grossly intact Results Laboratory Results: 03/04/17 17:35 03/04/17 17:35 03/04/17 03/04/17 03/04/17 10:20 10:20 10:20 Fluid Glucose 216 Fluid Total Protein Fluid LDH 334 Fluid Amylase 30 03/04/17 10:20 Fluid Glucose Fluid Total Protein 4.0 Fluid LDH Fluid Amylase Impressions: Chest/Abdomen CTA 03/03/17 21:20 IMPRESSION: No emboli visualized in the main pulmonary arteries or the segmental branches. Mildly Increasing pulmonary masses and consolidation. Similar sized moderate left pleural effusion. Chest X-Ray 03/04/17 00:00 IMPRESSION: Lung guillen are stable. There is no pneumothorax. Thoracentesis Ultrasound 03/04/17 00:00 IMPRESSION: SUCCESSFUL THORACENTESIS USING ULTRASOUND GUIDANCE. Assessment & Plan - Diagnosis (1) Malignant pleural effusion Is this a current diagnosis for this admission?: Yes (2) Malignant neoplasm of left lung Qualifiers: Lung location: lower lobe of lung Qualified Code(s): C34.32 - Malignant neoplasm of lower lobe, left bronchus or lung Is this a current diagnosis for this admission?: Yes (3) Chronic obstructive pulmonary disease Qualifiers: COPD type: unspecified COPD Qualified Code(s): J44.9 - Chronic obstructive pulmonary disease, unspecified Is this a current diagnosis for this admission?: Yes (4) Pneumonia Qualifiers: Pneumonia type: due to unspecified organism Laterality: bilateral Lung location: unspecified part of lung Qualified Code(s): J18.9 - Pneumonia, unspecified organism Is this a current diagnosis for this admission?: Yes (5) Constipation Qualifiers: Constipation type: unspecified constipation type Qualified Code(s): K59.00 - Constipation, unspecified Is this a current diagnosis for this admission?: Yes Plan: Prescribed Dulcolax
[2017-03-05] MEDS: ATORVASTATIN CALCIUM 40 MG TABLET PO SCH (22:23)
[2017-03-05] MEDS: AZITHROMYCIN 500 MG in DEXTROSE 5%-WATER 250 ML IV SCH (22:23)
[2017-03-06] MEDS: OXYCODONE HCL IR 5 MG TABLET PO PRN (06:24)
--- NOTE | 2017-03-06 07:42 | PDOC CONSULTATION ---
Consultation Consult Date: 03/05/17 Attending physician:: FARIDEH SCOTT Consult reason:: Pt w/ stage IV breast ca w/ pneumonia, pleural effusion History of Present Illness Admission Date/PCP: 03/04/17 02:02 FARIDEH SCOTT MD Patient complains of: Inc SOB/HERNANDEZ History of Present Illness: Please take note, I am redictating this note as it did not show up yesterday unfortunately. IT has been consulted. 67-year-old female with known history of stage IV breast cancer, we took over her care about a year and a half ago, at that time she had been treated with carbo/Taxol, since then she is received 3 more lines of therapy, since then she has been on Xeloda. Initially she has had a very good response, imaging done with PET/CT 3 months ago indicated continued good response, but since November she has had an admission for pneumonia and pleural effusion. On that admission the cytology for pleural effusion was negative. We were planning on doing PET/CT this Thursday. But she presented with increasing shortness of breath and cough, CTA of the chest was done in the ED which indicated progression of disease with the nodularity in the lung, I reviewed the images myself and there certainly is progression from November, but not really much progression from January. When I saw her initially today, I discussed these findings with her, and we had a long discussion about hospice care. Unfortunately, the problem was that the would not allow home health in her house or really anybody else to come in. She actually needs to care for him because he has recently had worsening heart failure. He just got out of the hospital about a week ago. Past Medical History Cardiac Medical History: Reports: Hyperlipidema Denies: Coronary Artery Disease, Myocardial Infarction, Hypertension Pulmonary Medical History: Reports: Chronic Obstructive Pulmonary Disease (COPD) Denies: Asthma, Bronchitis, Pneumonia Neurological Medical History: Denies: Seizures Malignancy Medical History: Reports: Breast Cancer Musculoskeltal Medical History: Reports: Arthritis Psychiatric Medical History: Reports: Depression Hematology: Denies: Anemia Past Surgical History Past Surgical History: Reports: Appendectomy, Hysterectomy Social History Information Source: Patient Lives with: Family Smoking Status: Former Smoker Number of Years Smokin Last Time Smoked: 02/03/17 Frequency of Alcohol Use: None Hx Recreational Drug Use: No Drugs: None Hx Prescription Drug Abuse: No Family History Family History: Reviewed & Not Pertinent Parental Family History Reviewed: Yes Children Family History Reviewed: Yes Sibling(s) Family History Reviewed.: Yes Medication/Allergy Home Medications: Albuterol Sulfate [Proair HFA] 2 puff IH Q4HP PRN 03/04/17 Aspirin [Aspirin EC] 81 mg PO DAILY 03/04/17 Atorvastatin Calcium [Lipitor 40 mg Tablet] 40 mg PO QHS 03/04/17 Duloxetine HCl [Cymbalta] 60 mg PO DAILY 03/04/17 Levofloxacin [Levaquin 750 mg Tablet] 750 mg PO DAILY 03/04/17 Oxycodone HCl [Oxy-Ir 5 mg Tablet] 5 mg PO Q6HP PRN 03/04/17 Pregabalin [Lyrica 50 Mg Capsule] 50 mg PO QPM 03/04/17 Pyridoxine HCl [Vitamin B-6] 50 mg PO DAILY 03/04/17 Tiotropium Br/Olodaterol HCl [Stiolto Respimat Inhal [place]] 2 puff IH DAILY Allergies/Adverse Reactions: aspirin [Aspirin] Allergy (Mild, Verified 03/03/17 19:10) diazepam [From Valium] Allergy (Verified 03/03/17 19:10) levofloxacin [From Levaquin] Allergy (Verified 03/03/17 19:10) morphine [Morphine] Allergy (Verified 03/03/17 19:10) Review of Systems Constitutional: ABSENT: chills, fever(s), headache(s), weight gain, weight loss Eyes: ABSENT: visual disturbances Ears: ABSENT: hearing changes Cardiovascular: ABSENT: chest pain, dyspnea on exertion, edema, orthropnea, palpitations Respiratory: ABSENT: cough, hemoptysis Gastrointestinal: ABSENT: abdominal pain, constipation, diarrhea, hematemesis, hematochezia, nausea, vomiting Genitourinary: ABSENT: dysuria, hematuria Musculoskeletal: ABSENT: joint swelling Integumentary: ABSENT: rash, wounds Neurological: ABSENT: abnormal gait, abnormal speech, confusion, dizziness, focal weakness, syncope Psychiatric: ABSENT: anxiety, depression, homidical ideation, suicidal ideation Endocrine: ABSENT: cold intolerance, heat intolerance, polydipsia, polyuria Hematologic/Lymphatic: ABSENT: easy bleeding, easy bruising Physical Exam Vital Signs: Temp Pulse Resp BP Pulse Ox 98.3 F 75 20 92/59 L 100 03/06/17 04:41 03/06/17 04:41 03/06/17 04:41 03/06/17 04:41 03/06/17 04:41 Intake & Output 03/05/17 03/06/17 03/07/17 06:59 06:59 06:59 Intake Total 2810 2640 Balance 2810 2640 Weight 61.3 kg General appearance: PRESENT: no acute distress, well-developed, well-nourished Head exam: PRESENT: atraumatic, normocephalic Eye exam: PRESENT: conjunctiva pink, EOMI, PERRLA. ABSENT: scleral icterus Ear exam: PRESENT: normal external ear exam Mouth exam: PRESENT: moist, tongue midline Neck exam: ABSENT: carotid bruit, JVD, lymphadenopathy, thyromegaly Respiratory exam: PRESENT: clear to auscultation cordell. ABSENT: rales, rhonchi, wheezes Cardiovascular exam: PRESENT: RRR. ABSENT: diastolic murmur, rubs, systolic murmur Pulses: PRESENT: normal dorsalis pedis pul Vascular exam: PRESENT: normal capillary refill GI/Abdominal exam: PRESENT: normal bowel sounds, soft. ABSENT: distended, guarding, mass, organolmegaly, rebound, tenderness Rectal exam: PRESENT: deferred Extremities exam: PRESENT: full ROM. ABSENT: calf tenderness, clubbing, pedal edema Neurological exam: PRESENT: alert, awake, oriented to person, oriented to place , oriented to time, oriented to situation, CN II-XII grossly intact. ABSENT: motor sensory deficit Psychiatric exam: PRESENT: appropriate affect, normal mood. ABSENT: homicidal ideation, suicidal ideation Skin exam: PRESENT: dry, intact, warm. ABSENT: cyanosis, rash Results Laboratory Results: 03/04/17 17:35 03/04/17 17:35 03/04/17 03/04/17 03/04/17 10:20 10:20 10:20 Fluid Glucose 216 Fluid Total Protein Fluid LDH 334 Fluid Amylase 30 03/04/17 10:20 Fluid Glucose Fluid Total Protein 4.0 Fluid LDH Fluid Amylase Impressions: Chest/Abdomen CTA 03/03/17 21:20 IMPRESSION: No emboli visualized in the main pulmonary arteries or the segmental branches. Mildly Increasing pulmonary masses and consolidation. Similar sized moderate left pleural effusion. Chest X-Ray 03/04/17 00:00 IMPRESSION: Lung guillen are stable. There is no pneumothorax. Thoracentesis Ultrasound 03/04/17 00:00 IMPRESSION: SUCCESSFUL THORACENTESIS USING ULTRASOUND GUIDANCE. Status: Image reviewed by me Assessment & Plan - Diagnosis (1) Breast cancer metastasized to lung Qualifiers: Laterality: left Qualified Code(s): C50.912 - Malignant neoplasm of unspecified site of left female breast; C78.02 - Secondary malignant neoplasm of left lung Is this a current diagnosis for this admission?: Yes Plan: Today had a long discussion with patient, spent greater than 70 minutes in discussion, we will see how she does through this admission. I will discuss hospice further with her and see if we can get that in but usually with home hospice there has to be a designated group sales representative. In addition, I am not sure if she is able to have her family, and help her. Her also needs a lot of help. We will try to help her work this out. - Time Time Spent: Greater than 70 Minutes Critical Time spent with patient: 35 or more minutes
--- NOTE | 2017-03-06 08:14 | PDOC PROGRESS REPORT ---
Subjective Progress Note for:: 03/06/17 Subjective:: Saw pt this am, pt is doing better, told pt to walk the [facility] Physical Exam Vital Signs: Temp Pulse Resp BP Pulse Ox 98.3 F 71 18 106/67 100 03/06/17 07:42 03/06/17 07:42 03/06/17 07:42 03/06/17 07:42 03/06/17 07:42 Intake & Output 03/05/17 03/06/17 03/07/17 06:59 06:59 06:59 Intake Total 2810 2640 Balance 2810 2640 Weight 61.3 kg General appearance: PRESENT: no acute distress, well-developed, well-nourished Head exam: PRESENT: atraumatic, normocephalic Eye exam: PRESENT: conjunctiva pink, EOMI, PERRLA. ABSENT: scleral icterus Ear exam: PRESENT: normal external ear exam Mouth exam: PRESENT: moist, tongue midline Neck exam: ABSENT: carotid bruit, JVD, lymphadenopathy, thyromegaly Respiratory exam: PRESENT: clear to auscultation cordell. ABSENT: rales, rhonchi, wheezes Cardiovascular exam: PRESENT: RRR. ABSENT: diastolic murmur, rubs, systolic murmur Pulses: PRESENT: normal dorsalis pedis pul Vascular exam: PRESENT: normal capillary refill GI/Abdominal exam: PRESENT: normal bowel sounds, soft. ABSENT: distended, guarding, mass, organolmegaly, rebound, tenderness Rectal exam: PRESENT: deferred Extremities exam: PRESENT: full ROM. ABSENT: calf tenderness, clubbing, pedal edema Neurological exam: PRESENT: alert, awake, oriented to person, oriented to place , oriented to time, oriented to situation, CN II-XII grossly intact. ABSENT: motor sensory deficit Psychiatric exam: PRESENT: appropriate affect, normal mood. ABSENT: homicidal ideation, suicidal ideation Skin exam: PRESENT: dry, intact, warm. ABSENT: cyanosis, rash Results Laboratory Results: 03/04/17 17:35 03/04/17 17:35 03/04/17 03/04/17 03/04/17 10:20 10:20 10:20 Fluid Glucose 216 Fluid Total Protein Fluid LDH 334 Fluid Amylase 30 03/04/17 10:20 Fluid Glucose Fluid Total Protein 4.0 Fluid LDH Fluid Amylase Impressions: Chest/Abdomen CTA 03/03/17 21:20 IMPRESSION: No emboli visualized in the main pulmonary arteries or the segmental branches. Mildly Increasing pulmonary masses and consolidation. Similar sized moderate left pleural effusion. Chest X-Ray 03/04/17 00:00 IMPRESSION: Lung guillen are stable. There is no pneumothorax. Thoracentesis Ultrasound 03/04/17 00:00 IMPRESSION: SUCCESSFUL THORACENTESIS USING ULTRASOUND GUIDANCE. Assessment & Plan - Diagnosis (1) Breast cancer metastasized to lung Qualifiers: Laterality: left Qualified Code(s): C50.912 - Malignant neoplasm of unspecified site of left female breast; C78.02 - Secondary malignant neoplasm of left lung Is this a current diagnosis for this admission?: Yes Plan: Had long discussion with patient today, at this point hospice will not be feasible, she still needs to be optimized from a COPD standpoint, she needs to be able to walk the halls before discharge, have asked her to do that today. I discussed this with Dr. Pittman as well, probable discharge in the next 24-48 hours if patient is doing well. - Time Time Spent with patient: 35 or more minutes Critical Time spent with patient: 35 or more minutes Within: within 48 hours
[2017-03-06] MEDS: DULOXETINE HCL 30 MG CAPSULE.DR PO SCH (09:38)
[2017-03-06] MEDS: ASPIRIN 81 MG TABLET, ENT COATED PO SCH (09:38)
[2017-03-06] MEDS: ENOXAPARIN SODIUM INJ 40 MG/0.4 ML DISP.SYRIN SUBCUT SCH (09:38)
[2017-03-06] MEDS: CEFEPIME 2 GM/D5W RTU 2 GM/50 ML RTUPB IV SCH ×2 (09:38→21:31)
[2017-03-06] MEDS: [UNRECOGNIZED DRUG - OTHER] PO SCH (09:39)
[2017-03-06] MEDS: TIOTROPIUM PO SCH (09:39)
[2017-03-06] MEDS: FLUTICASONE NASAL SPRAY 50 MCG/SPRY 120 SPRAY/16 GM NASL SCH (09:39)
[2017-03-06] MEDS: IPRATROPIUM/ALBUTEROL 0.5-2.5 MG/3 ML AMPUL NEB PRN (10:19)
[2017-03-06] MEDS ORDERED: HYDROMORPHONE HCL INJ/PF 2 MG/ML AMPULE IV ONE (14:45)
[2017-03-06] MEDS: PREGABALIN 50 MG CAPSULE PO SCH (17:40)
[2017-03-06] MEDS: PYRIDOXINE HCL 50 MG TABLET PO SCH (17:40)
--- NOTE | 2017-03-06 20:38 | PDOC PROGRESS REPORT ---
Subjective Progress Note for:: 03/06/17 Subjective:: Patient was seen by oncology Dr. Fermin is suggest the patient to stay for few more days for IV antibiotic, she can be discharged home over the weekend if stable Physical Exam Vital Signs: Temp Pulse Resp BP Pulse Ox 98.2 F 71 16 110/66 97 03/06/17 20:00 03/06/17 20:34 03/06/17 20:34 03/06/17 20:00 03/06/17 20:34 Intake & Output 03/05/17 03/06/17 03/07/17 06:59 06:59 06:59 Intake Total 2810 2640 2070 Output Total 150 Balance 2810 2640 1920 Weight 61.3 kg General appearance: PRESENT: mild distress Eye exam: PRESENT: PERRLA Respiratory exam: PRESENT: rhonchi Cardiovascular exam: PRESENT: +S1, +S2 Neurological exam: PRESENT: alert Results Laboratory Results: 03/04/17 17:35 03/04/17 17:35 Impressions: Chest/Abdomen CTA 03/03/17 21:20 IMPRESSION: No emboli visualized in the main pulmonary arteries or the segmental branches. Mildly Increasing pulmonary masses and consolidation. Similar sized moderate left pleural effusion. Chest X-Ray 03/04/17 00:00 IMPRESSION: Lung guillen are stable. There is no pneumothorax. Thoracentesis Ultrasound 03/04/17 00:00 IMPRESSION: SUCCESSFUL THORACENTESIS USING ULTRASOUND GUIDANCE. Assessment & Plan - Diagnosis (1) Malignant pleural effusion Is this a current diagnosis for this admission?: Yes (2) Malignant neoplasm of left lung Qualifiers: Lung location: lower lobe of lung Qualified Code(s): C34.32 - Malignant neoplasm of lower lobe, left bronchus or lung Is this a current diagnosis for this admission?: Yes (3) Chronic obstructive pulmonary disease Qualifiers: COPD type: unspecified COPD Qualified Code(s): J44.9 - Chronic obstructive pulmonary disease, unspecified Is this a current diagnosis for this admission?: Yes (4) Pneumonia Qualifiers: Pneumonia type: due to unspecified organism Laterality: bilateral Lung location: unspecified part of lung Qualified Code(s): J18.9 - Pneumonia, unspecified organism Is this a current diagnosis for this admission?: Yes (5) Constipation Qualifiers: Constipation type: unspecified constipation type Qualified Code(s): K59.00 - Constipation, unspecified Is this a current diagnosis for this admission?: Yes
[2017-03-06] MEDS: AZITHROMYCIN 250 MG TABLET PO SCH (21:32)
[2017-03-06] MEDS: ATORVASTATIN CALCIUM 40 MG TABLET PO SCH (21:32)
[2017-03-07] MEDS: OXYCODONE HCL IR 5 MG TABLET PO PRN ×2 (08:03→20:30)
[2017-03-07] MEDS: ENOXAPARIN SODIUM INJ 40 MG/0.4 ML DISP.SYRIN SUBCUT SCH (09:15)
[2017-03-07] MEDS: TIOTROPIUM PO SCH (09:15)
[2017-03-07] MEDS: [UNRECOGNIZED DRUG - OTHER] PO SCH (09:15)
[2017-03-07] MEDS: DULOXETINE HCL 30 MG CAPSULE.DR PO SCH (09:15)
[2017-03-07] MEDS: CEFEPIME 2 GM/D5W RTU 2 GM/50 ML RTUPB IV SCH ×2 (09:15→21:34)
[2017-03-07] MEDS: ASPIRIN 81 MG TABLET, ENT COATED PO SCH (09:15)
[2017-03-07] MEDS: FLUTICASONE NASAL SPRAY 50 MCG/SPRY 120 SPRAY/16 GM NASL SCH (09:16)
--- NOTE | 2017-03-07 10:38 | PDOC PROGRESS REPORT ---
Subjective Progress Note for:: 03/07/17 Subjective:: Patient is currently doing fair. Patient's to have a thoracocentesis done on the left side. Patient's denied any chest pain denied any shortness of the breath. Physical Exam Vital Signs: Temp Pulse Resp BP Pulse Ox 97.9 F 80 16 90/66 L 99 03/07/17 07:25 03/07/17 07:25 03/07/17 07:25 03/07/17 07:25 03/07/17 07:25 Intake & Output 03/06/17 03/07/17 03/08/17 06:59 06:59 06:59 Intake Total 2640 2755 Output Total 875 Balance 2640 1880 Weight 61.3 kg General appearance: PRESENT: no acute distress, well-developed, well-nourished Head exam: PRESENT: atraumatic, normocephalic Eye exam: PRESENT: conjunctiva pink, EOMI, PERRLA. ABSENT: scleral icterus Ear exam: PRESENT: normal external ear exam Mouth exam: PRESENT: moist, tongue midline Neck exam: PRESENT: full ROM. ABSENT: carotid bruit, JVD, lymphadenopathy, thyromegaly Respiratory exam: PRESENT: rhonchi Cardiovascular exam: PRESENT: RRR. ABSENT: diastolic murmur, rubs, systolic murmur Pulses: PRESENT: normal dorsalis pedis pul, +2 pedal pulses bilateral Vascular exam: PRESENT: normal capillary refill GI/Abdominal exam: PRESENT: normal bowel sounds, soft. ABSENT: distended, guarding, mass, organolmegaly, rebound, tenderness Rectal exam: PRESENT: deferred Neurological exam: PRESENT: alert, awake, oriented to person, oriented to place , oriented to time, oriented to situation, CN II-XII grossly intact. ABSENT: motor sensory deficit Psychiatric exam: PRESENT: appropriate affect, normal mood. ABSENT: homicidal ideation, suicidal ideation Skin exam: PRESENT: dry, intact, warm. ABSENT: cyanosis, rash Results Laboratory Results: 03/04/17 17:35 03/04/17 17:35 Impressions: Chest/Abdomen CTA 03/03/17 21:20 IMPRESSION: No emboli visualized in the main pulmonary arteries or the segmental branches. Mildly Increasing pulmonary masses and consolidation. Similar sized moderate left pleural effusion. Chest X-Ray 03/04/17 00:00 IMPRESSION: Lung guillen are stable. There is no pneumothorax. Thoracentesis Ultrasound 03/04/17 00:00 IMPRESSION: SUCCESSFUL THORACENTESIS USING ULTRASOUND GUIDANCE. Assessment & Plan - Diagnosis (1) Chronic obstructive pulmonary disease Qualifiers: COPD type: unspecified COPD Qualified Code(s): J44.9 - Chronic obstructive pulmonary disease, unspecified Is this a current diagnosis for this admission?: Yes Plan: Continues on DuoNeb and continuous IV antibiotic (2) Malignant neoplasm of lung Qualifiers: Laterality: left Lung location: upper lobe of lung Qualified Code(s): C34.12 - Malignant neoplasm of upper lobe, left bronchus or lung Is this a current diagnosis for this admission?: Yes Plan: Follow with oncology (3) Malignant pleural effusion Is this a current diagnosis for this admission?: Yes Plan: Status post thoracocentesis - Time Time Spent with patient: 15-24 minutes Medications reviewed and adjusted accordingly: Yes Anticipated discharge: Home Within: within 24 hours - Inpatient Certification Medical Necessity: Need Close Monitoring Due to Risk of Patient Decompensation, Need for IV Antibiotics Post Hospital Care: D/C Forecast Analyst Documentation - Plan Summary Plan Summary: Plan is continues to nebulizer treatments continues to IV antibiotic
--- NOTE | 2017-03-07 11:56 | PDOC PROGRESS REPORT ---
Subjective Progress Note for:: 03/07/17 Subjective:: No acute events overnight but yesterday cont SOB, so kept 24 more hours Physical Exam Vital Signs: Temp Pulse Resp BP Pulse Ox 97.9 F 80 16 90/66 L 99 03/07/17 07:25 03/07/17 07:25 03/07/17 07:25 03/07/17 07:25 03/07/17 07:25 Intake & Output 03/06/17 03/07/17 03/08/17 06:59 06:59 06:59 Intake Total 2640 2755 Output Total 875 Balance 2640 1880 Weight 61.3 kg General appearance: PRESENT: no acute distress, well-developed, well-nourished Head exam: PRESENT: atraumatic, normocephalic Eye exam: PRESENT: conjunctiva pink, EOMI, PERRLA. ABSENT: scleral icterus Ear exam: PRESENT: normal external ear exam Mouth exam: PRESENT: moist, tongue midline Neck exam: ABSENT: carotid bruit, JVD, lymphadenopathy, thyromegaly Respiratory exam: PRESENT: clear to auscultation cordell. ABSENT: rales, rhonchi, wheezes Cardiovascular exam: PRESENT: RRR. ABSENT: diastolic murmur, rubs, systolic murmur Pulses: PRESENT: normal dorsalis pedis pul Vascular exam: PRESENT: normal capillary refill GI/Abdominal exam: PRESENT: normal bowel sounds, soft. ABSENT: distended, guarding, mass, organolmegaly, rebound, tenderness Rectal exam: PRESENT: deferred Extremities exam: PRESENT: full ROM. ABSENT: calf tenderness, clubbing, pedal edema Neurological exam: PRESENT: alert, awake, oriented to person, oriented to place , oriented to time, oriented to situation, CN II-XII grossly intact. ABSENT: motor sensory deficit Psychiatric exam: PRESENT: appropriate affect, normal mood. ABSENT: homicidal ideation, suicidal ideation Skin exam: PRESENT: dry, intact, warm. ABSENT: cyanosis, rash Results Laboratory Results: 03/04/17 17:35 03/04/17 17:35 Impressions: Chest/Abdomen CTA 03/03/17 21:20 IMPRESSION: No emboli visualized in the main pulmonary arteries or the segmental branches. Mildly Increasing pulmonary masses and consolidation. Similar sized moderate left pleural effusion. Chest X-Ray 03/04/17 00:00 IMPRESSION: Lung guillen are stable. There is no pneumothorax. Thoracentesis Ultrasound 03/04/17 00:00 IMPRESSION: SUCCESSFUL THORACENTESIS USING ULTRASOUND GUIDANCE. Assessment & Plan - Diagnosis (1) Breast cancer metastasized to lung Qualifiers: Laterality: left Qualified Code(s): C50.912 - Malignant neoplasm of unspecified site of left female breast; C78.02 - Secondary malignant neoplasm of left lung Is this a current diagnosis for this admission?: Yes Plan: Will see pt as outpt, had long discussion w/ son in [place] about pt, at present pt will remain on Xeloda as outpt and we will make decision about next steps of care then. Spent >45 min in discussion w/ pt and son.
[2017-03-07] MEDS: PREGABALIN 50 MG CAPSULE PO SCH (17:46)
[2017-03-07] MEDS: PYRIDOXINE HCL 50 MG TABLET PO SCH (17:46)
[2017-03-07] MEDS: AZITHROMYCIN 250 MG TABLET PO SCH (21:35)
[2017-03-07] MEDS: ATORVASTATIN CALCIUM 40 MG TABLET PO SCH (21:35)
[2017-03-08] MEDS: ASPIRIN 81 MG TABLET, ENT COATED PO SCH (10:08)
[2017-03-08] MEDS: DULOXETINE HCL 30 MG CAPSULE.DR PO SCH (10:08)
[2017-03-08] MEDS: FLUTICASONE NASAL SPRAY 50 MCG/SPRY 120 SPRAY/16 GM NASL SCH (10:09)
[2017-03-08] MEDS: TIOTROPIUM PO SCH (10:10)
[2017-03-08] MEDS: CEFEPIME 2 GM/D5W RTU 2 GM/50 ML RTUPB IV SCH ×2 (10:10→21:40)
[2017-03-08] MEDS: [UNRECOGNIZED DRUG - OTHER] PO SCH (10:10)
[2017-03-08] MEDS: ENOXAPARIN SODIUM INJ 40 MG/0.4 ML DISP.SYRIN SUBCUT SCH (10:11)
--- NOTE | 2017-03-08 10:31 | PDOC PROGRESS REPORT ---
Subjective Progress Note for:: 03/08/17 Subjective:: Patient is currently doing fair. Patient's denied any chest pain any shortness of the breath Discussed with the patient's live by herself with her who is also sick with the cancers and the patient is taking care of her and I think patient is still very weak to taking care of him Physical Exam Vital Signs: Temp Pulse Resp BP Pulse Ox 97.5 F 79 16 105/61 99 03/08/17 07:53 03/08/17 08:46 03/08/17 08:46 03/08/17 07:53 03/08/17 08:46 Intake & Output 03/07/17 03/08/17 03/09/17 06:59 06:59 06:59 Intake Total 2755 1695 Output Total 875 900 Balance 1880 795 General appearance: PRESENT: no acute distress, well-developed, well-nourished Head exam: PRESENT: atraumatic, normocephalic Eye exam: PRESENT: conjunctiva pink, EOMI, PERRLA. ABSENT: scleral icterus Ear exam: PRESENT: normal external ear exam Mouth exam: PRESENT: moist, tongue midline Neck exam: PRESENT: full ROM. ABSENT: carotid bruit, JVD, lymphadenopathy, thyromegaly Respiratory exam: PRESENT: clear to auscultation cordell Cardiovascular exam: PRESENT: RRR. ABSENT: diastolic murmur, rubs, systolic murmur Pulses: PRESENT: normal dorsalis pedis pul, +2 pedal pulses bilateral Vascular exam: PRESENT: normal capillary refill GI/Abdominal exam: PRESENT: normal bowel sounds, soft. ABSENT: distended, guarding, mass, organolmegaly, rebound, tenderness Rectal exam: PRESENT: deferred Neurological exam: PRESENT: alert, awake, oriented to person, oriented to place , oriented to time, oriented to situation, CN II-XII grossly intact. ABSENT: motor sensory deficit Psychiatric exam: PRESENT: appropriate affect, normal mood. ABSENT: homicidal ideation, suicidal ideation Skin exam: PRESENT: dry, intact, warm. ABSENT: cyanosis, rash Results Laboratory Results: 03/04/17 17:35 03/04/17 17:35 03/04/17 10:20 Pleural Fluid - Left Pleural Effusion Gram Stain - Final 03/04/17 10:20 Pleural Fluid - Left Pleural Effusion Body Fluid Culture - Final NO AEROBIC OR ANAEROBIC ORGANISMS RECOVERED Impressions: Chest/Abdomen CTA 03/03/17 21:20 IMPRESSION: No emboli visualized in the main pulmonary arteries or the segmental branches. Mildly Increasing pulmonary masses and consolidation. Similar sized moderate left pleural effusion. Chest X-Ray 03/04/17 00:00 IMPRESSION: Lung guillen are stable. There is no pneumothorax. Thoracentesis Ultrasound 03/04/17 00:00 IMPRESSION: SUCCESSFUL THORACENTESIS USING ULTRASOUND GUIDANCE. Assessment & Plan - Diagnosis (1) Chronic obstructive pulmonary disease Qualifiers: COPD type: unspecified COPD Qualified Code(s): J44.9 - Chronic obstructive pulmonary disease, unspecified Is this a current diagnosis for this admission?: Yes Plan: Continues on DuoNeb and continuous IV antibiotic (2) Malignant neoplasm of lung Qualifiers: Laterality: left Lung location: upper lobe of lung Qualified Code(s): C34.12 - Malignant neoplasm of upper lobe, left bronchus or lung Is this a current diagnosis for this admission?: Yes Plan: Follow with oncology (3) Malignant pleural effusion Is this a current diagnosis for this admission?: Yes Plan: Status post thoracocentesis - Time Time Spent with patient: 15-24 minutes Medications reviewed and adjusted accordingly: Yes Anticipated discharge: Home Within: Other - Inpatient Certification Medical Necessity: Need for IV Antibiotics Post Hospital Care: D/C Corporate Analyst Documentation - Plan Summary Plan Summary: We will repeat the chest x-ray and consult the information systems planner to further evaluate about the patient's home conditions because I think patient is still very weak to taking care of herself
--- NOTE | 2017-03-08 12:23 | RADIOLOGY REPORT (SQ) ---
EXAM DESCRIPTION: CHEST PA/LAT COMPLETED DATE/TIME: 03/08/2017 12:11 pm REASON FOR STUDY: copd COMPARISON: 03/03/2017. 01/30/2017. CT chest 03/03/2017. TECHNIQUE: Frontal and lateral radiographic views of the chest acquired. NUMBER OF VIEWS: Two view. LIMITATIONS: None. FINDINGS: LUNGS AND PLEURA: Multifocal areas of airspace opacity with dense confluent consolidation most pronounced on the left. Stable appearance. No pneumothorax. MEDIASTINUM AND HILAR STRUCTURES: Stable contours. HEART AND VASCULAR STRUCTURES: Heart normal size. No evidence for failure. BONES: No acute findings. HARDWARE: Left port as before. OTHER: No other significant finding. IMPRESSION: 1. Stable lung opacities on short interval followup. TECHNICAL DOCUMENTATION: JOB ID: [id number] [employer]- All Rights Reserved
[2017-03-08] MEDS: OXYCODONE HCL IR 5 MG TABLET PO PRN ×2 (13:21→21:40)
[2017-03-08] MEDS: PREGABALIN 50 MG CAPSULE PO SCH (17:28)
[2017-03-08] MEDS: PYRIDOXINE HCL 50 MG TABLET PO SCH (17:28)
[2017-03-08] MEDS: AZITHROMYCIN 250 MG TABLET PO SCH (21:40)
[2017-03-08] MEDS: ATORVASTATIN CALCIUM 40 MG TABLET PO SCH (21:40)
[2017-03-09] MEDS: ALBUTEROL SULFATE HFA (90 MCG/PUFF) 200 PUFF/8.5 GM MDI IH PRN (07:40)
[2017-03-09] MEDS: IPRATROPIUM/ALBUTEROL 0.5-2.5 MG/3 ML AMPUL NEB PRN ×3 (07:53→21:15)
[2017-03-09] MEDS: ASPIRIN 81 MG TABLET, ENT COATED PO SCH (09:31)
[2017-03-09] MEDS: CEFEPIME 2 GM/D5W RTU 2 GM/50 ML RTUPB IV SCH ×2 (09:31→21:56)
[2017-03-09] MEDS: DULOXETINE HCL 30 MG CAPSULE.DR PO SCH (09:31)
[2017-03-09] MEDS: FLUTICASONE NASAL SPRAY 50 MCG/SPRY 120 SPRAY/16 GM NASL SCH (09:32)
[2017-03-09] MEDS: ENOXAPARIN SODIUM INJ 40 MG/0.4 ML DISP.SYRIN SUBCUT SCH (09:32)
--- NOTE | 2017-03-09 10:53 | PDOC PROGRESS REPORT ---
Subjective Progress Note for:: 03/09/17 Subjective:: Patient is currently doing well still have a some mild congestions. Patient's other than that denied any chest pain that any shortness of the breath Physical Exam Vital Signs: Temp Pulse Resp BP Pulse Ox 97.5 F 70 22 H 106/67 98 03/09/17 07:22 03/09/17 07:50 03/09/17 07:50 03/09/17 07:22 03/09/17 07:50 Intake & Output 03/08/17 03/09/17 03/10/17 06:59 06:59 06:59 Intake Total 1695 2180 Output Total 900 Balance 795 2180 General appearance: PRESENT: no acute distress, well-developed, well-nourished Head exam: PRESENT: atraumatic, normocephalic Eye exam: PRESENT: conjunctiva pink, EOMI, PERRLA. ABSENT: scleral icterus Ear exam: PRESENT: normal external ear exam Mouth exam: PRESENT: moist, tongue midline Neck exam: PRESENT: full ROM. ABSENT: carotid bruit, JVD, lymphadenopathy, thyromegaly Respiratory exam: PRESENT: rhonchi Cardiovascular exam: PRESENT: RRR. ABSENT: diastolic murmur, rubs, systolic murmur Pulses: PRESENT: normal dorsalis pedis pul, +2 pedal pulses bilateral Vascular exam: PRESENT: normal capillary refill GI/Abdominal exam: PRESENT: normal bowel sounds, soft. ABSENT: distended, guarding, mass, organolmegaly, rebound, tenderness Rectal exam: PRESENT: deferred Neurological exam: PRESENT: alert, awake, oriented to person, oriented to place , oriented to time, oriented to situation, CN II-XII grossly intact. ABSENT: motor sensory deficit Psychiatric exam: PRESENT: appropriate affect, normal mood. ABSENT: homicidal ideation, suicidal ideation Skin exam: PRESENT: dry, intact, warm. ABSENT: cyanosis, rash Results Laboratory Results: 03/04/17 17:35 03/04/17 17:35 03/04/17 10:20 Pleural Fluid - Left Pleural Effusion Gram Stain - Final 03/04/17 10:20 Pleural Fluid - Left Pleural Effusion Body Fluid Culture - Final NO AEROBIC OR ANAEROBIC ORGANISMS RECOVERED Impressions: Chest/Abdomen CTA 03/03/17 21:20 IMPRESSION: No emboli visualized in the main pulmonary arteries or the segmental branches. Mildly Increasing pulmonary masses and consolidation. Similar sized moderate left pleural effusion. Thoracentesis Ultrasound 03/04/17 00:00 IMPRESSION: SUCCESSFUL THORACENTESIS USING ULTRASOUND GUIDANCE. Chest X-Ray 03/08/17 00:00 IMPRESSION: 1. Stable lung opacities on short interval followup. Assessment & Plan - Diagnosis (1) Chronic obstructive pulmonary disease Qualifiers: COPD type: unspecified COPD Qualified Code(s): J44.9 - Chronic obstructive pulmonary disease, unspecified Is this a current diagnosis for this admission?: Yes Plan: Continues on DuoNeb and continuous IV antibiotic (2) Malignant neoplasm of lung Qualifiers: Laterality: left Lung location: upper lobe of lung Qualified Code(s): C34.12 - Malignant neoplasm of upper lobe, left bronchus or lung Is this a current diagnosis for this admission?: Yes Plan: Follow with oncology (3) Malignant pleural effusion Is this a current diagnosis for this admission?: Yes Plan: Status post thoracocentesis (4) Bilateral pneumonia Qualifiers: Pneumonia type: due to unspecified organism Lung location: upper lobe of lung Qualified Code(s): J18.9 - Pneumonia, unspecified organism Is this a current diagnosis for this admission?: Yes Plan: Ha IV antibiotic - Time Time Spent with patient: 15-24 minutes Medications reviewed and adjusted accordingly: Yes Anticipated discharge: Home Within: within 24 hours - Inpatient Certification Medical Necessity: Need Close Monitoring Due to Risk of Patient Decompensation, Need for IV Antibiotics Post Hospital Care: D/C [employer] Man Documentation - Plan Summary Plan Summary: Will working with the systems requirements planner to assist the home situations
[2017-03-09] MEDS: [UNRECOGNIZED DRUG - OTHER] PO SCH (11:09)
[2017-03-09] MEDS: TIOTROPIUM PO SCH (11:09)
[2017-03-09] MEDS: PYRIDOXINE HCL 50 MG TABLET PO SCH (17:14)
[2017-03-09] MEDS: PREGABALIN 50 MG CAPSULE PO SCH (17:14)
[2017-03-09] MEDS: OXYCODONE HCL IR 5 MG TABLET PO PRN (19:32)
[2017-03-09] MEDS: ATORVASTATIN CALCIUM 40 MG TABLET PO SCH (21:56)
[2017-03-09] MEDS: AZITHROMYCIN 250 MG TABLET PO SCH (21:56)
[2017-03-10 06:00] LABS: ABSOLUTE EOSINOPHILS # (AUTO) 0.3 10^3/uL (0.0-0.6); ABSOLUTE LYMPHOCYTES (AUTO) 0.9 10^3/uL (0.5-4.7); ABSOLUTE MONOCYTES (AUTO) 0.6 10^3/uL (0.1-1.4); ABSOLUTE NEUT (AUTO) 5.8 10^3/uL (1.7-8.2); BASOPHILS % (AUTO) 0.6 % (0-2); EOSINOPHILS % (AUTO) 4.5 % (0-6); HEMATOCRIT 37.3 % (36.0-47.0); HEMOGLOBIN 12.7 g/dL (12.0-15.5); HGB HCT DIFFERENCE 0.8; LYMPHOCYTES % (AUTO) 11.9 % (13-45); MEAN CORPUSCULAR HEMOGLOBIN 33.9 pg (27.0-33.4); MEAN CORPUSCULAR HGB CONC 34.1 g/dL (32.0-36.0); MEAN CORPUSCULAR VOLUME 99 fl (80-97); MONOCYTES % (AUTO) 7.3 % (3-13); RED BLOOD COUNT 3.75 10^6/uL (3.72-5.28); RED CELL DISTRIBUTION WIDTH 15.8 % (11.5-14.0); SEGMENTED NEUTROPHILS % (AUTO) 75.7 % (42-78); WHITE BLOOD COUNT 7.6 10^3/uL (4.0-10.5)
[2017-03-10 06:13] LABS: ANION GAP 10 (5-19); BLOOD UREA NITROGEN 10 mg/dL (7-20); CALCIUM 9.7 mg/dL (8.4-10.2); CARBON DIOXIDE 29 mmol/L (22-30); CHLORIDE 102 mmol/L (98-107); CREATININE RESULT 0.67 mg/dL (0.52-1.25); GLUCOSE 110 mg/dL (75-110); POTASSIUM 4.2 mmol/L (3.6-5.0); SODIUM 140.5 mmol/L (137-145)
--- NOTE | 2017-03-10 07:59 | PDOC PROGRESS REPORT ---
Subjective Progress Note for:: 03/10/17 Subjective:: Patient remains quite weak, has not really been out of the room, has been up in a chair with assistance. As noted previously, home situation will be difficult , her apparently has not allowed any home health or people to come into the house, he is also very sick, he was actually supposed to see us this week but cannot really get out of the house, her son currently is in [place], he would really like her to come out there to be with him. He will be contacting the [facility] to see if he can travel here, as he is active . Physical Exam Vital Signs: Temp Pulse Resp BP Pulse Ox 98.3 F 74 20 121/67 94 03/09/17 23:56 03/09/17 23:56 03/09/17 23:56 03/09/17 23:56 03/09/17 21:15 Intake & Output 03/09/17 03/10/17 03/11/17 06:59 06:59 06:59 Intake Total 2180 1023 Balance 2180 1023 General appearance: PRESENT: no acute distress, well-developed, well-nourished Head exam: PRESENT: atraumatic, normocephalic Eye exam: PRESENT: conjunctiva pink, EOMI, PERRLA. ABSENT: scleral icterus Ear exam: PRESENT: normal external ear exam Mouth exam: PRESENT: moist, tongue midline Neck exam: ABSENT: carotid bruit, JVD, lymphadenopathy, thyromegaly Respiratory exam: PRESENT: clear to auscultation cordell. ABSENT: rales, rhonchi, wheezes Cardiovascular exam: PRESENT: RRR. ABSENT: diastolic murmur, rubs, systolic murmur Pulses: PRESENT: normal dorsalis pedis pul Vascular exam: PRESENT: normal capillary refill GI/Abdominal exam: PRESENT: normal bowel sounds, soft. ABSENT: distended, guarding, mass, organolmegaly, rebound, tenderness Rectal exam: PRESENT: deferred Extremities exam: PRESENT: full ROM. ABSENT: calf tenderness, clubbing, pedal edema Neurological exam: PRESENT: alert, awake, oriented to person, oriented to place , oriented to time, oriented to situation, CN II-XII grossly intact. ABSENT: motor sensory deficit Psychiatric exam: PRESENT: appropriate affect, normal mood. ABSENT: homicidal ideation, suicidal ideation Skin exam: PRESENT: dry, intact, warm. ABSENT: cyanosis, rash Results Laboratory Results: 03/10/17 05:45 03/10/17 05:45 03/10/17 03/10/17 05:45 05:45 WBC 7.6 RBC 3.75 Hgb 12.7 Hct 37.3 MCV 99 H MCH 33.9 H MCHC 34.1 RDW 15.8 H Plt Count 345 Seg Neutrophils % 75.7 Lymphocytes % 11.9 L Monocytes % 7.3 Eosinophils % 4.5 Basophils % 0.6 Absolute Neutrophils 5.8 Absolute Lymphocytes 0.9 Absolute Monocytes 0.6 Absolute Eosinophils 0.3 Absolute Basophils 0.0 Sodium 140.5 Potassium 4.2 Chloride 102 Carbon Dioxide 29 Anion Gap 10 BUN 10 Creatinine 0.67 Est GFR ( Amer) > 60 Est GFR (Non-Af Amer) > 60 Glucose 110 Calcium 9.7 Impressions: Chest/Abdomen CTA 03/03/17 21:20 IMPRESSION: No emboli visualized in the main pulmonary arteries or the segmental branches. Mildly Increasing pulmonary masses and consolidation. Similar sized moderate left pleural effusion. Thoracentesis Ultrasound 03/04/17 00:00 IMPRESSION: SUCCESSFUL THORACENTESIS USING ULTRASOUND GUIDANCE. Chest X-Ray 03/08/17 00:00 IMPRESSION: 1. Stable lung opacities on short interval followup. Assessment & Plan - Diagnosis (1) Breast cancer metastasized to lung Qualifiers: Laterality: left Qualified Code(s): C50.912 - Malignant neoplasm of unspecified site of left female breast; C78.02 - Secondary malignant neoplasm of left lung Is this a current diagnosis for this admission?: Yes Plan: As noted previously, she has been through multiple lines of therapy, do not believe there is any further lines that would greatly assist her, agree with hospice, however at present there is nobody at home to take care of her. Discharge planning will continue to work with family, I have discussed her case with the nurse, we will see how things go. - Time Time Spent with patient: 35 or more minutes Critical Time spent with patient: 35 or more minutes
[2017-03-10] MEDS: ENOXAPARIN SODIUM INJ 40 MG/0.4 ML DISP.SYRIN SUBCUT SCH (09:27)
[2017-03-10] MEDS: FLUTICASONE NASAL SPRAY 50 MCG/SPRY 120 SPRAY/16 GM NASL SCH (09:27)
[2017-03-10] MEDS: DULOXETINE HCL 30 MG CAPSULE.DR PO SCH (09:27)
[2017-03-10] MEDS: TIOTROPIUM PO SCH (09:27)
[2017-03-10] MEDS: ASPIRIN 81 MG TABLET, ENT COATED PO SCH (09:27)
[2017-03-10] MEDS: [UNRECOGNIZED DRUG - OTHER] PO SCH (09:27)
[2017-03-10] MEDS: CEFEPIME 2 GM/D5W RTU 2 GM/50 ML RTUPB IV SCH ×2 (09:28→21:53)
[2017-03-10] MEDS: PYRIDOXINE HCL 50 MG TABLET PO SCH (17:38)
[2017-03-10] MEDS: PREGABALIN 50 MG CAPSULE PO SCH (17:38)
[2017-03-10] MEDS: IPRATROPIUM/ALBUTEROL 0.5-2.5 MG/3 ML AMPUL NEB PRN (18:23)
[2017-03-10] MEDS: OXYCODONE HCL IR 5 MG TABLET PO PRN (19:45)
[2017-03-10] MEDS ORDERED: LANSOPRAZOLE 30 MG TAB.RAP.DR PO PRN (19:48)
[2017-03-10] MEDS: GUAIFENESIN SYRP 200 MG/10 ML UDC PO PRN (20:37)
--- NOTE | 2017-03-10 21:19 | PDOC PROGRESS REPORT ---
Subjective Progress Note for:: 03/10/17 Subjective:: Patient was seen by the bedside, she was admitted because of shortness of breath due to combination of lung cancer, pleural effusion pneumonia. She was seen by Dr. Watts oncology Physical Exam Vital Signs: Temp Pulse Resp BP Pulse Ox 98.2 F 77 18 109/63 98 03/10/17 15:32 03/10/17 18:23 03/10/17 18:23 03/10/17 15:32 03/10/17 18:23 Intake & Output 03/09/17 03/10/17 03/11/17 06:59 06:59 06:59 Intake Total 2180 1023 780 Balance 2180 1023 780 General appearance: PRESENT: no acute distress Eye exam: PRESENT: PERRLA Respiratory exam: PRESENT: rhonchi Cardiovascular exam: PRESENT: +S1, +S2 GI/Abdominal exam: PRESENT: soft Neurological exam: PRESENT: alert, CN II-XII grossly intact Results Laboratory Results: 03/10/17 05:45 03/10/17 05:45 03/10/17 03/10/17 05:45 05:45 WBC 7.6 RBC 3.75 Hgb 12.7 Hct 37.3 MCV 99 H MCH 33.9 H MCHC 34.1 RDW 15.8 H Plt Count 345 Seg Neutrophils % 75.7 Lymphocytes % 11.9 L Monocytes % 7.3 Eosinophils % 4.5 Basophils % 0.6 Absolute Neutrophils 5.8 Absolute Lymphocytes 0.9 Absolute Monocytes 0.6 Absolute Eosinophils 0.3 Absolute Basophils 0.0 Sodium 140.5 Potassium 4.2 Chloride 102 Carbon Dioxide 29 Anion Gap 10 BUN 10 Creatinine 0.67 Est GFR ( Amer) > 60 Est GFR (Non-Af Amer) > 60 Glucose 110 Calcium 9.7 03/04/17 10:20 Pleural Fluid - Left Pleural Effusion Fungal Smear - Final 03/04/17 10:20 Pleural Fluid - Left Pleural Effusion Fungal Smear - Final 03/04/17 10:20 Pleural Fluid - Left Pleural Effusion AFB Smear Concentration - Final 03/04/17 10:20 Pleural Fluid - Left Pleural Effusion Acid Fast Bacilli Smear - Final Impressions: Chest/Abdomen CTA 03/03/17 21:20 IMPRESSION: No emboli visualized in the main pulmonary arteries or the segmental branches. Mildly Increasing pulmonary masses and consolidation. Similar sized moderate left pleural effusion. Thoracentesis Ultrasound 03/04/17 00:00 IMPRESSION: SUCCESSFUL THORACENTESIS USING ULTRASOUND GUIDANCE. Chest X-Ray 03/08/17 00:00 IMPRESSION: 1. Stable lung opacities on short interval followup. Assessment & Plan - Diagnosis (1) Malignant pleural effusion Is this a current diagnosis for this admission?: Yes (2) Malignant neoplasm of left lung Qualifiers: Lung location: lower lobe of lung Qualified Code(s): C34.32 - Malignant neoplasm of lower lobe, left bronchus or lung Is this a current diagnosis for this admission?: Yes (3) Chronic obstructive pulmonary disease Qualifiers: COPD type: unspecified COPD Qualified Code(s): J44.9 - Chronic obstructive pulmonary disease, unspecified Is this a current diagnosis for this admission?: Yes (4) Pneumonia Qualifiers: Pneumonia type: due to unspecified organism Laterality: bilateral Lung location: unspecified part of lung Qualified Code(s): J18.9 - Pneumonia, unspecified organism Is this a current diagnosis for this admission?: Yes (5) Constipation Qualifiers: Constipation type: unspecified constipation type Qualified Code(s): K59.00 - Constipation, unspecified Is this a current diagnosis for this admission?: Yes
[2017-03-10] MEDS: AZITHROMYCIN 250 MG TABLET PO SCH (21:52)
[2017-03-10] MEDS: ATORVASTATIN CALCIUM 40 MG TABLET PO SCH (21:53)
[2017-03-11 06:22] LABS: ANION GAP 9 (5-19); BLOOD UREA NITROGEN 11 mg/dL (7-20); CALCIUM 9.2 mg/dL (8.4-10.2); CARBON DIOXIDE 29 mmol/L (22-30); CHLORIDE 103 mmol/L (98-107); CREATININE RESULT 0.63 mg/dL (0.52-1.25); GLUCOSE 104 mg/dL (75-110); POTASSIUM 4.3 mmol/L (3.6-5.0); SODIUM 140.6 mmol/L (137-145)
--- NOTE | 2017-03-11 08:39 | PDOC PROGRESS REPORT ---
Subjective Progress Note for:: 03/11/17 Subjective:: Plan for discharge today, yesterday she noted that son needed a [place] letter for him to come home, we did that yesterday and sent him the letter. Patient has been doing well, Physical Exam Vital Signs: Temp Pulse Resp BP Pulse Ox 98.2 F 72 17 105/54 L 100 03/11/17 00:34 03/11/17 00:34 03/11/17 00:34 03/11/17 00:34 03/11/17 00:34 Intake & Output 03/10/17 03/11/17 03/12/17 06:59 06:59 06:59 Intake Total 1023 1190 Balance 1023 1190 General appearance: PRESENT: no acute distress, well-developed, well-nourished Head exam: PRESENT: atraumatic, normocephalic Eye exam: PRESENT: conjunctiva pink, EOMI, PERRLA. ABSENT: scleral icterus Ear exam: PRESENT: normal external ear exam Mouth exam: PRESENT: moist, tongue midline Neck exam: ABSENT: carotid bruit, JVD, lymphadenopathy, thyromegaly Respiratory exam: PRESENT: clear to auscultation cordell. ABSENT: rales, rhonchi, wheezes Cardiovascular exam: PRESENT: RRR. ABSENT: diastolic murmur, rubs, systolic murmur Pulses: PRESENT: normal dorsalis pedis pul Vascular exam: PRESENT: normal capillary refill GI/Abdominal exam: PRESENT: normal bowel sounds, soft. ABSENT: distended, guarding, mass, organolmegaly, rebound, tenderness Rectal exam: PRESENT: deferred Extremities exam: PRESENT: full ROM. ABSENT: calf tenderness, clubbing, pedal edema Neurological exam: PRESENT: alert, awake, oriented to person, oriented to place , oriented to time, oriented to situation, CN II-XII grossly intact. ABSENT: motor sensory deficit Psychiatric exam: PRESENT: appropriate affect, normal mood. ABSENT: homicidal ideation, suicidal ideation Skin exam: PRESENT: dry, intact, warm. ABSENT: cyanosis, rash Results Laboratory Results: 03/10/17 05:45 03/11/17 05:45 03/11/17 05:45 Sodium 140.6 Potassium 4.3 Chloride 103 Carbon Dioxide 29 Anion Gap 9 BUN 11 Creatinine 0.63 Est GFR ( Amer) > 60 Est GFR (Non-Af Amer) > 60 Glucose 104 Calcium 9.2 03/04/17 10:20 Pleural Fluid - Left Pleural Effusion Fungal Smear - Final 03/04/17 10:20 Pleural Fluid - Left Pleural Effusion Fungal Smear - Final 03/04/17 10:20 Pleural Fluid - Left Pleural Effusion AFB Smear Concentration - Final 03/04/17 10:20 Pleural Fluid - Left Pleural Effusion Acid Fast Bacilli Smear - Final Impressions: Chest/Abdomen CTA 03/03/17 21:20 IMPRESSION: No emboli visualized in the main pulmonary arteries or the segmental branches. Mildly Increasing pulmonary masses and consolidation. Similar sized moderate left pleural effusion. Thoracentesis Ultrasound 03/04/17 00:00 IMPRESSION: SUCCESSFUL THORACENTESIS USING ULTRASOUND GUIDANCE. Chest X-Ray 03/08/17 00:00 IMPRESSION: 1. Stable lung opacities on short interval followup. Assessment & Plan - Diagnosis (1) Breast cancer metastasized to lung Qualifiers: Laterality: left Qualified Code(s): C50.912 - Malignant neoplasm of unspecified site of left female breast; C78.02 - Secondary malignant neoplasm of left lung Is this a current diagnosis for this admission?: Yes Plan: Further treatment planned, but at present we really can initiate hospice as her will not allow anybody into the house, he could probably start this once her son comes here, discharged home today
[2017-03-11] MEDS: IPRATROPIUM/ALBUTEROL 0.5-2.5 MG/3 ML AMPUL NEB PRN (08:41)
[2017-03-11] MEDS: OXYCODONE HCL IR 5 MG TABLET PO PRN (08:51)
[2017-03-11] MEDS: GUAIFENESIN SYRP 200 MG/10 ML UDC PO PRN (08:52)
[2017-03-11] MEDS: ASPIRIN 81 MG TABLET, ENT COATED PO SCH (09:48)
[2017-03-11] MEDS: DULOXETINE HCL 30 MG CAPSULE.DR PO SCH (09:48)
[2017-03-11] MEDS: ENOXAPARIN SODIUM INJ 40 MG/0.4 ML DISP.SYRIN SUBCUT SCH (09:48)
[2017-03-11] MEDS: FLUTICASONE NASAL SPRAY 50 MCG/SPRY 120 SPRAY/16 GM NASL SCH (09:48)
[2017-03-11] MEDS: [UNRECOGNIZED DRUG - OTHER] PO SCH (09:52)
[2017-03-11] MEDS: TIOTROPIUM PO SCH (09:52)
[2017-03-11 12:26] VITALS: BP 108/63
--- NOTE | 2017-03-11 14:26 | PDOC DISCHARGE SUMMARY ---
General - Admit/Disc Date/PCP Admission Date/Primary Care Provider: 03/04/17 02:02 FARIDEH SCOTT MD Discharge Date: 03/11/17 - Discharge Diagnosis (1) Malignant pleural effusion Is this a current diagnosis for this admission?: Yes (2) Malignant neoplasm of left lung Is this a current diagnosis for this admission?: Yes (3) Chronic obstructive pulmonary disease Is this a current diagnosis for this admission?: Yes (4) Pneumonia Is this a current diagnosis for this admission?: Yes (5) Constipation Is this a current diagnosis for this admission?: Yes - Additional Information Home Medications: Albuterol Sulfate [Proair HFA] 2 puff IH Q4HP PRN 03/04/17 Aspirin [Aspirin EC] 81 mg PO DAILY 03/04/17 Atorvastatin Calcium [Lipitor 40 mg Tablet] 40 mg PO QHS 03/04/17 Duloxetine HCl [Cymbalta] 60 mg PO DAILY 03/04/17 Oxycodone HCl [Oxy-Ir 5 mg Tablet] 5 mg PO Q6HP PRN 03/04/17 Pregabalin [Lyrica 50 mg Capsule] 50 mg PO QPM 03/04/17 Pyridoxine HCl [Vitamin B-6] 50 mg PO DAILY 03/04/17 Tiotropium Br/Olodaterol HCl [Stiolto Respimat Inhal [place]] 2 puff IH DAILY History of Present Illness History of Present Illness: GIANFRANCO LAWRENCE is a 67 year old female, she has a history of malignant neoplasm of the lung, she came to the emergency room for evaluation of progressive shortness of breath. I saw her in the office on Thursday that was 2 days ago when she came to the office for evaluation of shortness of breath, there was associated productive cough, the cough was colored, she was prescribed antibiotic and she was advised to go to emergency room if symptoms persist. She could emergency room last night because of worsening of her symptoms, in the emergency room she was seen and evaluated, CTA chest was done he showed increasing pulmonary masses and consolidation left more than right with moderate sized left pleural effusion there is no emboli visualized in the main pulmonary arteries or the segmental branches. She has similar presentation last month and she underwent thoracentesis. She also had thoracentesis this morning, she was scheduled for outpatient PET scan for Lauri, she follows with Dr. Fermin, oncology, consultation will be requested from Dr. Fermin. She is presently a DNR status it is possible that there could be associated infection but is seems that the primary problem is the malignancy I am not sure what the plan is from the standpoint of oncology, she be treated with IV antibiotic, azithromycin and cefepime she stated that the p.o. Levaquin that was prescribed outpatient made her sick. Hospital Course Hospital Course: Patient was admitted because of worsening shortness of breath due to combination of pneumonia left pleural effusion most likely malignant pleural effusion. She was treated with IV antibiotic, bronchodilators, she was seen by oncology Dr. Joseph. Patient was very symptomatic she underwent thoracentesis , large amount of pleural fluid was collected from the left pleural space.The overall prognosis is very poor in this patient. The ultimate plan at this point is to transfer her care to hospice this will be arranged by the oncologist Physical Exam Vital Signs: Temp Pulse Resp BP Pulse Ox 98.2 F 73 20 108/63 95 03/11/17 11:04 03/11/17 11:04 03/11/17 11:04 03/11/17 11:04 03/11/17 11:04 Intake & Output 03/10/17 03/11/17 03/12/17 06:59 06:59 06:59 Intake Total 1023 1190 Balance 1023 1190 General appearance: PRESENT: no acute distress Eye exam: PRESENT: PERRLA Respiratory exam: PRESENT: clear to auscultation cordell Cardiovascular exam: PRESENT: +S1, +S2 GI/Abdominal exam: PRESENT: soft Neurological exam: PRESENT: alert, CN II-XII grossly intact Results Laboratory Results: 03/10/17 05:45 03/11/17 05:45 03/11/17 05:45 Sodium 140.6 Potassium 4.3 Chloride 103 Carbon Dioxide 29 Anion Gap 9 BUN 11 Creatinine 0.63 Est GFR ( Amer) > 60 Est GFR (Non-Af Amer) > 60 Glucose 104 Calcium 9.2 03/04/17 10:20 Pleural Fluid - Left Pleural Effusion Fungal Smear - Final 03/04/17 10:20 Pleural Fluid - Left Pleural Effusion Fungal Smear - Final Impressions: Chest/Abdomen CTA 03/03/17 21:20 IMPRESSION: No emboli visualized in the main pulmonary arteries or the segmental branches. Mildly Increasing pulmonary masses and consolidation. Similar sized moderate left pleural effusion. Thoracentesis Ultrasound 03/04/17 00:00 IMPRESSION: SUCCESSFUL THORACENTESIS USING ULTRASOUND GUIDANCE. Chest X-Ray 03/08/17 00:00 IMPRESSION: 1. Stable lung opacities on short interval followup.
== END 2017-03-11 16:45 | disposition home or self-care (01) | DRG 180 ==
LOC: ER 18:40 → EH 03-04 00:20 → UNDOADMIN 03-04 00:20 → EH 03-04 01:41 → 4S 03-04 01:41 → EH 03-04 02:02 → 4S 03-04 02:02
PROVIDERS: ADMIT Internal Medicine; ATTEND Internal Medicine
PROC: 0W9B3ZX Drainage of Left Pleural Cavity, Percutaneous Approach, Diagnostic (ICD-10-PCS; principal; 2017-03-04)
DX: C78.02 Secondary malignant neoplasm of left lung (principal); J18.9 Pneumonia, unspecified organism; J91.0 Malignant pleural effusion; J90 Pleural effusion, not elsewhere classified; K59.00 Constipation, unspecified; C50.912 Malignant neoplasm of unspecified site of left female breast; Z66 Do not resuscitate; Z87.891 Personal history of nicotine dependence; M19.90 Unspecified osteoarthritis, unspecified site; F32.9 Major depressive disorder, single episode, unspecified; J44.9 Chronic obstructive pulmonary disease, unspecified; Z79.899 Other long term (current) drug therapy
CPT/HCPCS: 32555; 36415; 71010; 71020; 71275; 80048; 80053; 82150; 82550; 82553; 82565; 82803; 82945; 83605; 83615; 83880; 84157; 84484; 85025; 85027; 85610; 85730; 87015; 87040; 87070; 87075; 87101; 87116; 87205; 87206; 87252; 88184; 88185; 88233; 88262; 88305; 88341; 88342; 89050; 93005; 93010; 94640; 96361; 96374; 99285; J0456; J0692; J1170; J1642; J1650; J2930; J3490; J7030; J7060; J7620